=== PATIENT | female | born 1950 | race Caucasian/White ===

== ENCOUNTER 2017-10-31 14:18 | Emergency (ER) | payer MEDICARE, OTHER, SELFPAY ==
--- NOTE | 2017-10-31 14:29 | ED.LOWEXIN ---
HPI - Extremity Injury (Lower) <FREDIS Garcia - Last Filed: 10/31/17 21:50> General Chief Complaint: Extremity Injury, Lower Stated Complaint: FELL, POSSIBLE BREAK TO RIGHT ANKLE Time Seen by Provider: 10/31/17 14:29 History of Present Illness HPI Narrative: 67-year-old female here for complaint of pain to her right ankle status post rolling it while she stepped awkwardly off a sidewalk earlier today. She states she walked a couple blocks after she rolled her ankle and then she went knee lunch and then when she got up after lunch that she noticed increased pain to the right lateral ankle. She denies any other injuries or concerns. Increased pain with weight-bearing and ambulation on the right ankle. Related Data Home Medications Medication Instructions Recorded Confirmed levothyroxine 0.088 mg PO QAM #0 07/04/17 omeprazole 40 mg PO QAM #0 07/04/17 Allergies Allergy/AdvReac Type Severity Reaction Status Date / Time codeine [CODEINE] Allergy Mild Hives Unverified 09/20/17 12:40 Review of Systems <FREDIS Garcia - Last Filed: 10/31/17 21:50> Constitutional Denies chills, Denies fever(s), Denies lethargy and Denies weakness Eyes Denies change in vision, Denies eye discharge, Denies irritation and Denies loss of vision Cardiovascular Denies chest pain, Denies irregular heart rhythm, Denies lightheadedness, Denies palpitations and Denies orthopnea Gastrointestinal Gastrointestinal: Denies abdominal pain, Denies change in bowel habits, Denies diarrhea, Denies nausea and Denies vomiting Musculoskeletal Comments: Right ankle pain Integumentary/Breasts Denies pruritus, Denies erythema, Denies rash and Denies wounds Neurologic Denies loss of vision and Denies weakness Endocrine Denies palpitations Exam <FREDIS Garcia - Last Filed: 10/31/17 21:50> Initial Vital Signs Initial Vital Signs: Vital Signs Temperature 97.9 F 10/31/17 15:21 Pulse Rate 88 10/31/17 15:21 Respiratory Rate 14 10/31/17 15:21 Blood Pressure 122/79 H 10/31/17 15:21 Pulse Oximetry 98 10/31/17 15:21 Const General: cooperative and well developed Nutritional Appearance: well nourished Orientation: alert, awake, oriented x3 and not confused [facility] Mouth: oral mucosae normal and moist mucous membranes Eyes General: appearance normal, both eyes and all related structures Eyelids: eyelids normal Conjunctivae: conjunctivae normal Sclera: sclerae normal Pupils: PERRL EOM: EOM intact bilaterally Resp Effort & Inspection: normal respiratory effort, able to speak in complete sentences, no respiratory distress and no use of accessory muscles Auscultation: clear to auscultation bilaterally, no rales, no rhonchi and no wheezes Cardio Rate: regular rate Rhythm: regular rhythm Heart Sounds: no click, no gallops, no murmurs and no rubs Pulses: normal peripheral pulses Skin General: no rashes or lesions noted, No jaundice and No petechiae Extrem Other: Swelling to the right lateral malleolus with slight ecchymosis. No open lesions. No deformities. Distal sensation is intact. Distal pulses are intact. Distal range of motion is intact. <DO Charles Hopson Last Filed: 11/07/17 18:11> Initial Vital Signs Initial Vital Signs: Vital Signs Temperature 97.9 F 10/31/17 15:21 Pulse Rate 88 10/31/17 15:21 Respiratory Rate 14 10/31/17 15:21 Blood Pressure 122/79 H 10/31/17 15:21 Pulse Oximetry 98 10/31/17 15:21 Procedures <FREDIS Garcia - Last Filed: 10/31/17 21:50> Orthopedic Splinting/Casting Injury #1: Side: right Lower Extremity Injury Location: ankle Lower Extremity Immobilizer: posterior splint and stirrup splint Other Orthopedic Equipment: crutches Additional Comments: Distal CMS intact after splint application Course <FREDIS Garcia Last Filed: 10/31/17 21:50> Orders Ordered: ED Orders 10/31/17 15:33 XR ankle RT min 3V Stat Vital Signs - 8 hr 10/31/17 15:21 Temperature 97.9 F Pulse Rate 88 Respiratory Rate 14 Blood Pressure 122/79 H Pulse Oximetry 98 <DO Charles Hopson Last Filed: 11/07/17 18:11> Orders Ordered: ED Orders 10/31/17 15:33 XR ankle RT min 3V Stat Vital Signs - 8 hr 10/31/17 15:21 Temperature 97.9 F Pulse Rate 88 Respiratory Rate 14 Blood Pressure 122/79 H Pulse Oximetry 98 [facility] - Extremity Injury (Lower) <FREDIS Garcia - Last Filed: 10/31/17 21:50> Imaging Data Right ankle: Radiologist's impression: PROCEDURE: XR ANKLE RT MIN 3V INDICATIONS: 67 year-old female with right ankle injury. TECHNIQUE: 3 views of the ankle were acquired. COMPARISON: None. FINDINGS: Bones: There is mildly displaced transverse avulsion fracture involving the distal fibular tip. Ankle mortise is normally aligned. No suspicious bony lesions. Soft tissues: No tibiotalar joint effusion. Achilles tendon appears normal. IMPRESSION: Distal fibular tip transverse avulsion fracture, consistent with stage I supination adduction mechanism of injury. Dictated by: Saeed Rouse M.D. on 10/31/2017 at 16:09 Approved by: Saeed Rouse M.D. on 10/31/2017 at 16:11 [facility] Narrative Medical decision making narrative: X-ray of the right ankle was obtained and shows a distal fibular avulsion fracture. She is placed in a posterior and stirrup splint for comfort and support along with crutches for nonweightbearing. She is referred Orthopedics for further evaluation and treatment. [id number] Tylenol and Motrin as needed for any discomfort. Offered [place] for breakthrough pain the patient refused and would rather just use Tylenol or Motrin. Ice and elevation help with swelling. Return emergency room for any worsening symptoms. Discharge Plan Departure Patient Disposition: Home, Self-Care Clinical Impression: Ankle fracture Discharge Date/Time: 10/31/17 17:48 Interventions: ED Discharge Assessment Last Done: 10/31/17 17:47 Instructions: DI for Ankle Fracture Activity Restrictions/Additional Instructions: X-ray of the right ankle shows a you have of ankle fracture. You have been placed in a splint for comfort and support along with crutches for non weight-bearing use as directed. Ice and elevation to right ankle over the next few days to help with swelling. Use [id number] Tylenol or Motrin as needed for any discomfort. For any worsening symptoms return to the emergency room. Call Orthopedics tomorrow at the number provided to schedule follow-up appointment in the next few days. Prescriptions: No Action omeprazole 40 MG capsule,delayed release(DR/EC) 40 mg PO QAM Qty: 0 RF: 0 levothyroxine 88 MCG tablet 0.088 mg PO QAM Qty: 0 RF: 0 Referrals: [facility] [Provider Group] Briseida Lozada MD [Primary Care Provider] - <Flaco Parada DO - Last Filed: 11/07/17 18:11> Cosign ED Attending Omkar Attestation: I was available for consultation during this patient's emergency department encounter
[2017-10-31 15:21] VITALS: BP 122/79; PULSE 88; RESP 14; TEMP 36.6; O2SAT 98
--- NOTE | 2017-10-31 15:33 | DI.RAD.S_ITS ---
PROCEDURE: XR ANKLE RT MIN 3V INDICATIONS: 67 year-old female with right ankle injury. TECHNIQUE: 3 views of the ankle were acquired. COMPARISON: None. FINDINGS: Bones: There is mildly displaced transverse avulsion fracture involving the distal fibular tip. Ankle mortise is normally aligned. No suspicious bony lesions. Soft tissues: No tibiotalar joint effusion. Achilles tendon appears normal. IMPRESSION: Distal fibular tip transverse avulsion fracture, consistent with stage I supination adduction mechanism of injury. Dictated by: Saeed Rouse M.D. on 10/31/2017 at 16:09 Approved by: Saeed Rouse M.D. on 10/31/2017 at 16:11
--- NOTE | 2017-10-31 16:43 | ED_ITS ---
HPI - Extremity Injury (Lower) <FREDIS Garcia - Last Filed: 10/31/17 21:50> General Chief Complaint: Extremity Injury, Lower Stated Complaint: FELL, POSSIBLE BREAK TO RIGHT ANKLE Time Seen by Provider: 10/31/17 14:29 History of Present Illness HPI Narrative: 67-year-old female here for complaint of pain to her right ankle status post rolling it while she stepped awkwardly off a sidewalk earlier today. She states she walked a couple blocks after she rolled her ankle and then she went knee lunch and then when she got up after lunch that she noticed increased pain to the right lateral ankle. She denies any other injuries or concerns. Increased pain with weight-bearing and ambulation on the right ankle. Related Data Home Medications Medication Instructions Recorded Confirmed levothyroxine 0.088 mg PO QAM #0 07/04/17 omeprazole 40 mg PO QAM #0 07/04/17 Allergies Allergy/AdvReac Type Severity Reaction Status Date / Time codeine [CODEINE] Allergy Mild Hives Unverified 09/20/17 12:40 Review of Systems <FREDIS Garcia - Last Filed: 10/31/17 21:50> Constitutional Denies chills, Denies fever(s), Denies lethargy and Denies weakness Eyes Denies change in vision, Denies eye discharge, Denies irritation and Denies loss of vision Cardiovascular Denies chest pain, Denies irregular heart rhythm, Denies lightheadedness, Denies palpitations and Denies orthopnea Gastrointestinal Gastrointestinal: Denies abdominal pain, Denies change in bowel habits, Denies diarrhea, Denies nausea and Denies vomiting Musculoskeletal Comments: Right ankle pain Integumentary/Breasts Denies pruritus, Denies erythema, Denies rash and Denies wounds Neurologic Denies loss of vision and Denies weakness Endocrine Denies palpitations Exam <FREDIS Garcia - Last Filed: 10/31/17 21:50> Initial Vital Signs Initial Vital Signs: Vital Signs Temperature 97.9 F 10/31/17 15:21 Pulse Rate 88 10/31/17 15:21 Respiratory Rate 14 10/31/17 15:21 Blood Pressure 122/79 H 10/31/17 15:21 Pulse Oximetry 98 10/31/17 15:21 Const General: cooperative and well developed Nutritional Appearance: well nourished Orientation: alert, awake, oriented x3 and not confused [facility] Mouth: oral mucosae normal and moist mucous membranes Eyes General: appearance normal, both eyes and all related structures Eyelids: eyelids normal Conjunctivae: conjunctivae normal Sclera: sclerae normal Pupils: PERRL EOM: EOM intact bilaterally Resp Effort & Inspection: normal respiratory effort, able to speak in complete sentences, no respiratory distress and no use of accessory muscles Auscultation: clear to auscultation bilaterally, no rales, no rhonchi and no wheezes Cardio Rate: regular rate Rhythm: regular rhythm Heart Sounds: no click, no gallops, no murmurs and no rubs Pulses: normal peripheral pulses Skin General: no rashes or lesions noted, No jaundice and No petechiae Extrem Other: Swelling to the right lateral malleolus with slight ecchymosis. No open lesions. No deformities. Distal sensation is intact. Distal pulses are intact. Distal range of motion is intact. <DO Charles Hopson Last Filed: 11/07/17 18:11> Initial Vital Signs Initial Vital Signs: Vital Signs Temperature 97.9 F 10/31/17 15:21 Pulse Rate 88 10/31/17 15:21 Respiratory Rate 14 10/31/17 15:21 Blood Pressure 122/79 H 10/31/17 15:21 Pulse Oximetry 98 10/31/17 15:21 Procedures <FREDIS Garcia - Last Filed: 10/31/17 21:50> Orthopedic Splinting/Casting Injury #1: Side: right Lower Extremity Injury Location: ankle Lower Extremity Immobilizer: posterior splint and stirrup splint Other Orthopedic Equipment: crutches Additional Comments: Distal CMS intact after splint application Course <FREDIS Garcia Last Filed: 10/31/17 21:50> Orders Ordered: ED Orders 10/31/17 15:33 XR ankle RT min 3V Stat Vital Signs - 8 hr 10/31/17 15:21 Temperature 97.9 F Pulse Rate 88 Respiratory Rate 14 Blood Pressure 122/79 H Pulse Oximetry 98 <DO Charles Hopson Last Filed: 11/07/17 18:11> Orders Ordered: ED Orders 10/31/17 15:33 XR ankle RT min 3V Stat Vital Signs - 8 hr 10/31/17 15:21 Temperature 97.9 F Pulse Rate 88 Respiratory Rate 14 Blood Pressure 122/79 H Pulse Oximetry 98 [facility] - Extremity Injury (Lower) <FREDIS Garcia - Last Filed: 10/31/17 21:50> Imaging Data Right ankle: Radiologist's impression: PROCEDURE: XR ANKLE RT MIN 3V INDICATIONS: 67 year-old female with right ankle injury. TECHNIQUE: 3 views of the ankle were acquired. COMPARISON: None. FINDINGS: Bones: There is mildly displaced transverse avulsion fracture involving the distal fibular tip. Ankle mortise is normally aligned. No suspicious bony lesions. Soft tissues: No tibiotalar joint effusion. Achilles tendon appears normal. IMPRESSION: Distal fibular tip transverse avulsion fracture, consistent with stage I supination adduction mechanism of injury. Dictated by: Saeed Rouse M.D. on 10/31/2017 at 16:09 Approved by: Saeed Rouse M.D. on 10/31/2017 at 16:11 [facility] Narrative Medical decision making narrative: X-ray of the right ankle was obtained and shows a distal fibular avulsion fracture. She is placed in a posterior and stirrup splint for comfort and support along with crutches for nonweightbearing. She is referred Orthopedics for further evaluation and treatment. [id number] Tylenol and Motrin as needed for any discomfort. Offered [place] for breakthrough pain the patient refused and would rather just use Tylenol or Motrin. Ice and elevation help with swelling. Return emergency room for any worsening symptoms. Discharge Plan Departure Patient Disposition: Home, Self-Care Clinical Impression: Ankle fracture Discharge Date/Time: 10/31/17 17:48 Interventions: ED Discharge Assessment Last Done: 10/31/17 17:47 Instructions: DI for Ankle Fracture Activity Restrictions/Additional Instructions: X-ray of the right ankle shows a you have of ankle fracture. You have been placed in a splint for comfort and support along with crutches for non weight- bearing use as directed. Ice and elevation to right ankle over the next few days to help with swelling. Use [id number] Tylenol or Motrin as needed for any discomfort. For any worsening symptoms return to the emergency room. Call Orthopedics tomorrow at the number provided to schedule follow-up appointment in the next few days. Prescriptions: No Action omeprazole 40 MG capsule,delayed release(DR/EC) 40 mg PO QAM Qty: 0 RF: 0 levothyroxine 88 MCG tablet 0.088 mg PO QAM Qty: 0 RF: 0 Referrals: [facility] [Provider Group] Briseida Lozada MD [Primary Care Provider] - <Flaco Parada DO - Last Filed: 11/07/17 18:11> Cosign ED Attending Omkar Attestation: I was available for consultation during this patient's emergency department encounter
== END 2017-10-31 17:48 | disposition home or self-care (01) ==
PROVIDERS: Emergency Provider Nurse Practitioner Family; PCP Family Medicine
DX: S82.891A Other fracture of right lower leg, initial encounter for closed fracture (principal); W18.43XA Slipping, tripping and stumbling without falling due to stepping from one level to another, initial encounter
CPT/HCPCS: 29515; 73610; 99283

== ENCOUNTER → 2017-12-07 08:01 | Outpatient (CLI) | payer MEDICARE, OTHER, SELFPAY ==
[2017-12-07 09:24] LABS: Thyroid Stimulating Hormone 1.04 uIU/mL (0.47-4.68)
== END ==
PROVIDERS: PCP Family Medicine; Visit Provider Family Medicine
DX: E03.8 Other specified hypothyroidism (principal); E06.3 Autoimmune thyroiditis
CPT/HCPCS: 36415; 84443

== ENCOUNTER → 2018-08-29 10:55 | Outpatient (CLI) | payer MEDICARE, OTHER, SELFPAY ==
--- NOTE | 2018-08-29 | DI.MG.S_ITS ---
BILATERAL DIGITAL SCREENING MAMMOGRAM 3D/2D WITH CAD: 08/29/2018 CLINICAL: Routine screening. Comparison is made to exams dated: 07/31/2017 mammogram, 06/22/2016 mammogram - [facility], 05/05/2015 mammogram, and 03/27/2014 mammogram - [facility]. The tissue of both breasts is heterogeneously dense. This may lower the sensitivity of mammography. Current study was also evaluated with a Computer Aided Detection (CAD) system. No significant masses, calcifications, or other findings are seen in either breast. There has been no significant interval change. IMPRESSION: NEGATIVE There is no mammographic evidence of malignancy. A 1 year screening mammogram is recommended. This exam was interpreted at Station ID: [id number]. NOTE: For mammograms, a report in lay terms will be sent to the patient. Approximately 15% of breast malignancies will not be visualized mammographically. In the management of a palpable breast mass, a negative mammogram must not discourage biopsy of a clinically suspicious lesion. Electronically Signed By: Aly morley/madison:08/30/2018 08:04:56 letter sent: Normal Exam ACR BI-RADS Category 1: Negative 3341F
== END ==
PROVIDERS: PCP Family Medicine; Visit Provider Family Medicine
DX: Z12.31 Encounter for screening mammogram for malignant neoplasm of breast (principal)
CPT/HCPCS: 77063; 77067

== ENCOUNTER → 2018-08-30 07:33 | Outpatient (CLI) | payer MEDICARE, OTHER, SELFPAY ==
[2018-08-30 08:58] LABS: Cholesterol 234 mg/dL (140-199); Glucose 88 mg/dL (80-110); HDL Cholesterol 81 mg/dL (40-60); LDL Cholesterol Calculated 142 mg/dL (<100); Triglycerides 55 mg/dL (35-150)
[2018-08-30 09:27] LABS: Thyroid Stimulating Hormone 3.43 uIU/mL (0.47-4.68)
== END ==
PROVIDERS: PCP Family Medicine; Visit Provider Family Medicine
DX: E03.8 Other specified hypothyroidism (principal); E06.3 Autoimmune thyroiditis; Z13.1 Encounter for screening for diabetes mellitus; Z13.220 Encounter for screening for lipoid disorders
CPT/HCPCS: 36415; 80061; 82947; 84443

== ENCOUNTER → 2019-05-21 09:42 | Outpatient (CLI) | payer MEDICARE, OTHER, SELFPAY ==
--- NOTE | 2019-05-21 09:43 | DI.US.S_ITS ---
PROCEDURE: US EXTREMITY NONVASC LOWER LT INDICATIONS: MASS MEDIAL TO TIBIA ON LEFT LEG TECHNIQUE: Real-time scanning was performed of the left lower leg, with image documentation. COMPARISON: None. FINDINGS: 2.0 x 0.8 x 1.4 cm isoechoic lobulated avascular soft tissue mass corresponding to the palpable abnormality. IMPRESSION: Possible soft tissue lipoma; however differential would include both benign and malignant etiology. If indicated, contrast-enhanced soft tissue MRI could be performed. Dictated by: Jimmy SIMS Interpreted: Linda Norris MD on 05/21/2019 at 12:55 Approved by: Linda Norris M.D. on 05/21/2019 at 15:47
== END ==
PROVIDERS: PCP Family Medicine; Visit Provider Family Medicine
DX: R22.40 Localized swelling, mass and lump, unspecified lower limb (principal)
CPT/HCPCS: 76882

== ENCOUNTER → 2019-07-09 09:43 | Outpatient (CLI) | payer MEDICARE, OTHER, SELFPAY ==
[2019-07-09 11:41] LABS: Thyroid Stimulating Hormone 1.98 uIU/mL (0.47-4.68)
== END ==
PROVIDERS: PCP Family Medicine; Visit Provider Family Medicine
DX: E03.8 Other specified hypothyroidism (principal)
CPT/HCPCS: 36415; 84443

== ENCOUNTER → 2020-01-21 11:53 | Outpatient (CLI) | payer MEDICARE, OTHER, SELFPAY ==
--- NOTE | 2020-01-21 11:56 | DI.MG.S_ITS ---
BILATERAL DIGITAL SCREENING MAMMOGRAM 3D/2D WITH CAD: 01/21/2020 CLINICAL: Routine screening. Comparison is made to exams dated: 08/29/2018 mammogram, 07/31/2017 mammogram, and 06/22/2016 mammogram - [facility]. The tissue of both breasts is heterogeneously dense. This may lower the sensitivity of mammography. Current study was also evaluated with a Computer Aided Detection (CAD) system. No significant masses, calcifications, or other findings are seen in either breast. There has been no significant interval change. IMPRESSION: NEGATIVE There is no mammographic evidence of malignancy. A 1 year screening mammogram is recommended. This exam was interpreted at Station ID: [id number]. NOTE: For mammograms, a report in lay terms will be sent to the patient. Approximately 15% of breast malignancies will not be visualized mammographically. In the management of a palpable breast mass, a negative mammogram must not discourage biopsy of a clinically suspicious lesion. Electronically Signed By: Joselito Tamez M.D., jr/madison:01/21/2020 15:20:54 letter sent: Normal Exam ACR BI-RADS Category 1: Negative 3341F
== END ==
PROVIDERS: PCP Family Medicine; Referring Provider Family Medicine; Visit Provider Family Medicine
DX: Z12.31 Encounter for screening mammogram for malignant neoplasm of breast (principal)
CPT/HCPCS: 77063; 77067

== ENCOUNTER → 2020-02-27 08:35 | Outpatient (CLI) | payer MEDICARE, OTHER, SELFPAY ==
[2020-02-27 09:17] LABS: Add Manual Diff / Slide Review NO; Basophils Absolute Auto 0 /uL (0-100); Basophils Percent Auto 0.7 % (0-2); Eosinophils Absolute Auto 0 /uL (0-450); Eosinophils Percent Auto 1.4 % (2-4); Hematocrit 38.8 % (36-46); Hemoglobin 12.7 g/dL (12.0-16.0); Lymphocytes Absolute Auto 1300 /uL (1100-4500); Lymphocytes Percent Auto 38.5 % (25-40); Mean Corpuscular HGB Conc 32.8 % (30-36); Mean Corpuscular Hemoglobin 29.1 PG (26-34); Mean Corpuscular Volume 88.5 fL (80-100); Monocytes Absolute Auto 300 /uL (0-900); Monocytes Percent Auto 8.5 % (3-14); Neutrophils Absolute Auto 1800 /uL (1500-7000); Neutrophils Percent Auto 50.9 % (50-75); Platelet Count 203 X10^3/uL (150-400); Red Blood Cell Count 4.38 X10^6/uL (4.0-5.2); White Blood Cell Count 3.5 X10^3/uL (4.5-11.0)
[2020-02-27 09:24] LABS: Hemoglobin A1C% w Est Avg Glu 5.6 % (4.0-6.0)
[2020-02-27 09:34] LABS: Alanine Aminotransferase 12 IU/L (<35); Albumin 4.1 g/dL (3.5-5.0); Albumin Globulin Ratio 1.7 (1.0-2.8); Alkaline Phosphatase 49 U/L (38-126); Aspartate Aminotransferase 17 IU/L (14-36); BUN Creatinine Ratio 16.7 (6-22); Bilirubin Total 0.8 mg/dL (0.2-1.3); Blood Urea Nitrogen 12 mg/dL (7-17); Calcium 9.2 mg/dL (8.4-10.2); Carbon Dioxide 29 mmol/L (22-32); Chloride 101 mmol/L (98-107); Estimated Glomerular Filt Rate > 60.0 mL/min (>60); Globulin 2.4 g/dL (1.7-4.1); Glucose 95 mg/dL (80-110); HEMOLYSIS < 15 (0-50); Potassium 4.1 mmol/L (3.4-5.1); Sodium 136 mmol/L (137-145); Total Protein 6.5 g/dL (6.3-8.2)
[2020-02-27 10:13] LABS: Vitamin D 25 Hydroxy (D3) 30.6 ng/mL (30.0-100.0)
[2020-02-27 10:15] LABS: Free T3, Triiodothyronine Free 2.56 pg/mL (2.77-5.27); Free T4, Direct Thyroxine 1.74 ng/dL (0.78-2.19)
[2020-02-27 10:22] LABS: Vitamin B12 351 pg/mL (239-931)
[2020-02-27 10:29] LABS: Thyroid Stimulating Hormone 0.933 uIU/mL (0.47-4.68)
== END ==
PROVIDERS: PCP Family Medicine; Referring Provider Family Medicine; Visit Provider Family Medicine
DX: R53.83 Other fatigue (principal); R63.8 Other symptoms and signs concerning food and fluid intake; E03.8 Other specified hypothyroidism; E06.3 Autoimmune thyroiditis
CPT/HCPCS: 36415; 80053; 82306; 82607; 83036; 84439; 84443; 84481; 85025

== ENCOUNTER → 2020-04-21 08:17 | Outpatient (CLI) | payer MEDICARE, OTHER, SELFPAY ==
[2020-04-21 10:45] LABS: Free T3, Triiodothyronine Free 2.88 pg/mL (2.77-5.27); Free T4, Direct Thyroxine 1.15 ng/dL (0.78-2.19)
== END ==
PROVIDERS: PCP Family Medicine; Referring Provider Family Medicine; Visit Provider Family Medicine
DX: E03.8 Other specified hypothyroidism (principal); E06.3 Autoimmune thyroiditis
CPT/HCPCS: 36415; 84439; 84443; 84481

== ENCOUNTER → 2020-07-07 16:05 | Outpatient (CLI) | payer MEDICARE, OTHER, SELFPAY ==
[2020-07-07] MEDS: COVID-19 VACC #1, MRNA(MOD) 100 MCG/0.5 ML VIAL IM (16:20)
== END ==
PROVIDERS: PCP Family Medicine; Visit Provider Internal Medicine
DX: Z23 Encounter for immunization (principal)
CPT/HCPCS: 0011A; 91301

== ENCOUNTER → 2020-08-05 08:31 | Outpatient (CLI) | payer MEDICARE, OTHER, SELFPAY ==
[2020-08-05] MEDS: COVID-19 VACC #2, MRNA(MOD) 100 MCG/0.5 ML VIAL IM (08:35)
== END ==
PROVIDERS: Visit Provider Internal Medicine
DX: Z23 Encounter for immunization (principal)
CPT/HCPCS: 0012A; 91301

== ENCOUNTER → 2021-01-29 08:12 | Outpatient (CLI) | payer MEDICARE, OTHER, SELFPAY ==
--- NOTE | 2021-01-29 | DI.MG.S_ITS ---
BILATERAL DIGITAL SCREENING MAMMOGRAM 3D/2D WITH CAD: 01/29/2021 CLINICAL: Routine screening. Comparison is made to exams dated: 01/21/2020 mammogram, 08/29/2018 mammogram, and 07/31/2017 mammogram - [facility]. The tissue of both breasts is heterogeneously dense. This may lower the sensitivity of mammography. Current study was also evaluated with a Computer Aided Detection (CAD) system. No significant masses, calcifications, or other findings are seen in either breast. There has been no significant interval change. IMPRESSION: NEGATIVE There is no mammographic evidence of malignancy. A 1 year screening mammogram is recommended. This exam was interpreted at Station ID: [id number]. NOTE: For mammograms, a report in lay terms will be sent to the patient. Approximately 15% of breast malignancies will not be visualized mammographically. In the management of a palpable breast mass, a negative mammogram must not discourage biopsy of a clinically suspicious lesion. Electronically Signed By: Joselito Tamez M.D., jr/madison:01/29/2021 09:26:50 letter sent: Normal Exam ACR BI-RADS Category 1: Negative 3341F
== END ==
PROVIDERS: PCP Family Medicine; Referring Provider Family Medicine; Visit Provider Family Medicine
DX: Z12.31 Encounter for screening mammogram for malignant neoplasm of breast (principal)
CPT/HCPCS: 77063; 77067

== ENCOUNTER → 2021-03-02 07:09 | Outpatient (CLI) | payer MEDICARE, OTHER, SELFPAY ==
[2021-03-02 08:03] LABS: Add Manual Diff / Slide Review NO; Basophils Absolute Auto 0 /uL (0-100); Basophils Percent Auto 0.7 % (0-2); Eosinophils Absolute Auto 200 /uL (0-450); Eosinophils Percent Auto 4.2 % (2-4); Hematocrit 39.1 % (36-46); Hemoglobin 12.8 g/dL (12.0-16.0); Lymphocytes Absolute Auto 1500 /uL (1100-4500); Lymphocytes Percent Auto 34.8 % (25-40); Mean Corpuscular HGB Conc 32.8 % (30-36); Mean Corpuscular Hemoglobin 28.9 PG (26-34); Monocytes Absolute Auto 500 /uL (0-900); Monocytes Percent Auto 10.8 % (3-14); Neutrophils Absolute Auto 2100 /uL (1500-7000); Neutrophils Percent Auto 49.5 % (50-75); Platelet Count 224 X10^3/uL (150-400); Red Blood Cell Count 4.44 X10^6/uL (4.0-5.2); White Blood Cell Count 4.2 X10^3/uL (4.5-11.0)
[2021-03-02 08:40] LABS: Alanine Aminotransferase 22 IU/L (<35); Albumin Globulin Ratio 1.5 (1.0-2.8); Alkaline Phosphatase 55 U/L (38-126); Aspartate Aminotransferase 20 IU/L (14-36); BUN Creatinine Ratio 14.3 (6-22); Bilirubin Total 0.8 mg/dL (0.2-1.3); Blood Urea Nitrogen 12 mg/dL (7-17); Calcium 9.1 mg/dL (8.4-10.2); Carbon Dioxide 31 mmol/L (22-32); Chloride 104 mmol/L (98-107); Cholesterol 223 mg/dL (140-199); Estimated Glomerular Filt Rate > 60.0 mL/min (>60); Globulin 2.7 g/dL (1.7-4.1); Glucose 105 mg/dL (80-110); HDL Cholesterol 58 mg/dL (40-60); HEMOLYSIS < 15 (0-50); LDL Cholesterol Calculated 145 mg/dL (<100); Sodium 137 mmol/L (137-145); Total Protein 6.7 g/dL (6.3-8.2); Triglycerides 98 mg/dL (35-150)
[2021-03-02 08:48] LABS: Free T4, Direct Thyroxine 1.15 ng/dL (0.78-2.19)
[2021-03-02 09:01] LABS: Thyroid Stimulating Hormone 2.99 uIU/mL (0.47-4.68)
== END ==
PROVIDERS: PCP Family Medicine; Referring Provider Family Medicine; Visit Provider Family Medicine
DX: E03.8 Other specified hypothyroidism (principal); E06.3 Autoimmune thyroiditis
CPT/HCPCS: 36415; 80053; 80061; 84439; 84443; 84481; 85025

== ENCOUNTER → 2021-03-22 09:06 | Outpatient (CLI) | payer MEDICARE, OTHER, SELFPAY ==
[2021-03-23 12:08] LABS: Fecal Immunochemical Test Negative (Negative)
== END ==
PROVIDERS: PCP Family Medicine; Referring Provider Family Medicine; Visit Provider Family Medicine
DX: Z12.11 Encounter for screening for malignant neoplasm of colon (principal)
CPT/HCPCS: 82274

== ENCOUNTER → 2021-04-16 13:30 | Outpatient (CLI) | payer MEDICARE, OTHER, SELFPAY ==
[2021-04-16] MEDS: COVID-19 VACC #3, MRNA(MOD) 50 MCG/0.25 ML VIAL IM (13:36)
== END ==
PROVIDERS: PCP Family Medicine; Visit Provider Internal Medicine
DX: Z23 Encounter for immunization (principal)
CPT/HCPCS: 0013A; 91301

== ENCOUNTER → 2021-10-13 08:05 | Outpatient (CLI) | payer MEDICARE, OTHER, SELFPAY ==
[2021-10-13 09:07] LABS: Add Manual Diff / Slide Review NO; Basophils Absolute Auto 0 /uL (0-100); Basophils Percent Auto 0.9 % (0-2); Eosinophils Absolute Auto 100 /uL (0-450); Eosinophils Percent Auto 1.6 % (2-4); Hematocrit 37.5 % (36-46); Hemoglobin 12.6 g/dL (12.0-16.0); Lymphocytes Absolute Auto 1500 /uL (1100-4500); Lymphocytes Percent Auto 39.4 % (25-40); Mean Corpuscular HGB Conc 33.5 % (30-36); Mean Corpuscular Hemoglobin 29.3 PG (26-34); Mean Corpuscular Volume 87.5 fL (80-100); Monocytes Absolute Auto 400 /uL (0-900); Monocytes Percent Auto 9.6 % (3-14); Neutrophils Absolute Auto 1800 /uL (1500-7000); Neutrophils Percent Auto 48.5 % (50-75); Platelet Count 199 X10^3/uL (150-400); Red Blood Cell Count 4.28 X10^6/uL (4.0-5.2); Red Cell Distribution Width 14.7 % (11.6-14.8); White Blood Cell Count 3.8 X10^3/uL (4.5-11.0)
[2021-10-13 09:18] LABS: Hemoglobin A1C% w Est Avg Glu 5.7 % (4.0-6.0)
[2021-10-13 09:46] LABS: Alanine Aminotransferase 46 IU/L (<35); Albumin Globulin Ratio 1.5 (1.0-2.8); Alkaline Phosphatase 60 U/L (38-126); Aspartate Aminotransferase 31 IU/L (14-36); BUN Creatinine Ratio 10.7 (6-22); Bilirubin Total 0.9 mg/dL (0.2-1.3); Blood Urea Nitrogen 9 mg/dL (7-17); Calcium 8.8 mg/dL (8.4-10.2); Carbon Dioxide 31 mmol/L (22-32); Chloride 103 mmol/L (98-107); Cholesterol 209 mg/dL (140-199); Estimated Glomerular Filt Rate > 60 mL/min (>60); Globulin 2.7 g/dL (1.7-4.1); Glucose 100 mg/dL (80-110); HDL Cholesterol 50 mg/dL (40-60); HEMOLYSIS < 15 (0-50); LDL Cholesterol Calculated 136 mg/dL (<100); Potassium 4.3 mmol/L (3.4-5.1); Sodium 139 mmol/L (137-145); Total Protein 6.7 g/dL (6.3-8.2); Triglycerides 117 mg/dL (35-150)
== END ==
PROVIDERS: PCP Family Medicine; Referring Provider Family Medicine; Visit Provider Family Medicine
DX: R07.89 Other chest pain (principal)
CPT/HCPCS: 36415; 80053; 80061; 83036; 85025

== ENCOUNTER → 2021-10-20 13:20 | Outpatient (CLI) | payer MEDICARE, OTHER, SELFPAY ==
[2021-10-20 15:55] LABS: COVID19 -Nasal RAPID Negative (Negative)
== END ==
PROVIDERS: PCP Family Medicine; Visit Provider Family Medicine Sleep Medicine
DX: Z20.822 Contact with and (suspected) exposure to COVID-19 (principal)
CPT/HCPCS: 87635

== ENCOUNTER → 2021-10-20 13:56 | Outpatient (CLI) | payer MEDICARE, OTHER, SELFPAY ==
--- NOTE | 2021-10-20 13:58 | DI.NM.S_ITS ---
PROCEDURE: NM ROGER PERF SPECT REST & STR Rest and exercise myocardial perfusion SPECT with gated imaging and ejection fraction RADIOPHARMACEUTICAL: 25.2 mCi Tc-99m sestamibi IV at rest and 25.0 mCi Tc-99m sestamibi IV at peak exercise. A two day-protocol was performed. INDICATIONS: atypical chest pain TECHNIQUE: Radiopharmaceutical was injected at peak stress test, and also at rest. SPECT images were obtained. SPECT myocardial perfusion images were displayed in short axis, horizontal long axis, and vertical long axis views. Gated images were reviewed using [employer] software. COMPARISON: None. CARDIAC STRESS: A standard Misha treadmill exercise tolerance test was performed by the patient under the supervision of an attending staff. The patient exercised for 4 minutes and 1 seconds; functional aerobic impairment (JAIME) is 25%. Hemodynamic data: There is normal blood pressure and heart rate response to exercise stress. Patient achieved 111% of maximum predicted heart rate at peak exercise. Symptoms: Patient denied chest pain during exercise. EKG: No diagnostic EKG changes of ischemia; rare PVCs. FINDINGS: Raw data: There is good myocardial labeling by radiotracer. No significant motion artifacts. Ydcu-vy-lmosm ratio is 0.37 (normal is less than 0.38 for sestamibi tracer, and less than 0.50 for thallium tracer). Left ventricle function: Gated images demonstrate normal left ventricle wall thickening. No segmental wall motion abnormality. No transient ischemic dilation; TID is 0.98 (normal less than 1.3). The left ventricle resting end-diastolic volume is 88 mL. Left ventricle stress ejection fraction is 74%; normal values are above 45%. Myocardial perfusion: There is normal distribution of activity in the left and right ventricular myocardium. No fixed or reversible perfusion defects. IMPRESSION: Low risk, normal treadmill nuclear stress test 1) No perfusion evidence of ischemia or infarction. 2) No ECG changes with exercise. 3) No angina during the study. 4) Normal left ventricular size, wall motion, and systolic function (EF post stress 74%). 5) Mildly reduced exercise capacity (FA 7.0 METs, JAIME +25%). Target heart rate achieved. Appropriate BP response to exercise. 6) No prior nuclear stress test available for comparison. Dictated by: Zenia Sebastian MD on 10/21/2021 at 15:36 Approved by: Zenia Sebastian MD on 10/21/2021 at 15:38
--- NOTE | 2021-10-21 09:20 | P.PCN_ITS ---
Cardiac Stress Test Report Referral & Results Date Patient Seen: 10/21/21 Time Patient Seen: 09:00 Requesting provider: Briseida Lozada Indication: Chest discomfort Rest ECG: Normal sinus rhythm Procedure Note: Today, following both written and verbal informed consent, the patient was exercised according to a standard Misha protocol. The patient went for a total of 4 minutes achieving a maximum heart rate of 167 maximum systolic blood pressure of 162. This is approximately 7.0 METs. Exercise was terminated at this point because of fatigue. Patient was also given Cardiolite through a previously started Hep-Lock IV by the staff nuclear medicine technologist approximately 1 minute prior to the cessation of exercise. Rapid escalation of heart rate, but otherwise normal hemodynamic response to exercise. Occasional PVCs that did not increase in association with exertion. Diminished exercise capacity (FA I +25% on active scale), but orthopedic complaints may have limited stamina. Prominent T-waves after exertion, but no other EKG changes. No signs or symptoms of angina. Impression: Exercise portion is low risk. Perfusion imaging pending. Please note: Actual ECG tracings can be found in the PACS system.
== END ==
PROVIDERS: PCP Family Medicine; Referring Provider Family Medicine; Visit Provider Family Medicine
DX: R07.89 Other chest pain (principal); Z20.822 Contact with and (suspected) exposure to COVID-19
CPT/HCPCS: 78452; 87635; 93016; 93017; 93018; C9803; A9502

== ENCOUNTER → 2022-02-22 08:26 | Outpatient (CLI) | payer MEDICARE, OTHER, SELFPAY ==
--- NOTE | 2022-02-22 08:28 | DI.MG.S_ITS ---
BILATERAL DIGITAL SCREENING MAMMOGRAM 3D/2D WITH CAD: 02/22/2022 CLINICAL: Routine screening. Family history of breast cancer. Comparison is made to exams dated: 01/29/2021 mammogram, 01/21/2020 mammogram, and 08/29/2018 mammogram - [facility]. Both breasts are heterogeneously dense, which may obscure small masses (category c / 51-75% glandular tissue). Current study was also evaluated with a Computer Aided Detection (CAD) system. No significant masses, calcifications, or other findings are seen in either breast. There has been no significant interval change. IMPRESSION: NEGATIVE There is no mammographic evidence of malignancy. A 1 year screening mammogram is recommended. Based on the Tyrer Cuzick model (a risk assessment model) the patient's lifetime risk is 8.9% and her 10 year risk is 5.3%. According to the ACR, ACS, and NCCN guidelines, an annual breast MRI exam along with mammogram is recommended if the patient's lifetime risk is 20% or greater. This exam was interpreted at Station ID: [id number]. NOTE: For mammograms, a report in lay terms will be sent to the patient. Approximately 15% of breast malignancies will not be visualized mammographically. In the management of a palpable breast mass, a negative mammogram must not discourage biopsy of a clinically suspicious lesion. Electronically Signed By: Danilo alba/madison:02/22/2022 10:17:54 letter sent: Normal Exam ACR BI-RADS Category 1: Negative 3341F
== END ==
PROVIDERS: PCP Family Medicine; Referring Provider Family Medicine; Visit Provider Family Medicine
DX: Z12.31 Encounter for screening mammogram for malignant neoplasm of breast (principal); Z80.3 Family history of malignant neoplasm of breast
CPT/HCPCS: 77063; 77067

== ENCOUNTER 2022-03-01 09:29 | Emergency (ER) | payer MEDICARE, OTHER, SELFPAY ==
[2022-03-01] VITALS (10 sets, daily range): BP systolic 113–145; BP diastolic 71–93; PULSE 71–88; RESP 14–32; TEMP 36.4; O2SAT 95–99
--- NOTE | 2022-03-01 09:46 | DI.RAD.S_ITS ---
PROCEDURE: XR CHEST 1V INDICATIONS: chest pain TECHNIQUE: One view of the chest was acquired. COMPARISON: None. FINDINGS: Surgical changes and devices: None. Lungs and pleura: Mild streaky opacity at the right lower lobe. No pleural effusions or pneumothorax. Mediastinum: Mediastinal contours appear normal. Heart size is normal. Bones and chest wall: No suspicious bony lesions. Overlying soft tissues appear unremarkable. IMPRESSION: Mild streaky opacity at the right lower lobe. Suspect atelectasis over pneumonia. Dictated by: Abad López M.D. on 03/01/2022 at 10:12 Approved by: Abad López M.D. on 03/01/2022 at 10:13
[2022-03-01 10:30] LABS: Add Manual Diff / Slide Review NO; Basophils Absolute Auto 0 /uL (0-100); Basophils Percent Auto 0.5 % (0-2); Eosinophils Absolute Auto 0 /uL (0-450); Eosinophils Percent Auto 0.4 % (2-4); Hematocrit 36.9 % (36-46); Hemoglobin 12.5 g/dL (12.0-16.0); Lymphocytes Absolute Auto 1300 /uL (1100-4500); Lymphocytes Percent Auto 26.4 % (25-40); Mean Corpuscular HGB Conc 33.8 % (30-36); Mean Corpuscular Hemoglobin 29.4 PG (26-34); Monocytes Absolute Auto 400 /uL (0-900); Monocytes Percent Auto 8.5 % (3-14); Neutrophils Absolute Auto 3100 /uL (1500-7000); Neutrophils Percent Auto 64.2 % (50-75); Platelet Count 198 X10^3/uL (150-400); Red Blood Cell Count 4.24 X10^6/uL (4.0-5.2); Red Cell Distribution Width 15.7 % (11.6-14.8); White Blood Cell Count 4.8 X10^3/uL (4.5-11.0)
[2022-03-01 10:46] LABS: Alanine Aminotransferase 510 IU/L (<35); Albumin 3.9 g/dL (3.5-5.0); Albumin Globulin Ratio 1.3 (1.0-2.8); Alkaline Phosphatase 74 U/L (38-126); Aspartate Aminotransferase 251 IU/L (14-36); BUN Creatinine Ratio 15.5 (6-22); Bilirubin Total 1.4 mg/dL (0.2-1.3); Blood Urea Nitrogen 13 mg/dL (7-17); Calcium 8.7 mg/dL (8.4-10.2); Carbon Dioxide 27 mmol/L (22-32); Chloride 101 mmol/L (98-107); Creatine Kinase 59 U/L (30-135); Estimated Glomerular Filt Rate > 60 mL/min (>60); Glucose 96 mg/dL (80-110); HEMOLYSIS < 15 (0-50); Magnesium 2.3 mg/dL (1.6-2.3); Potassium 3.7 mmol/L (3.4-5.1); Sodium 137 mmol/L (137-145); Total Protein 6.9 g/dL (6.3-8.2)
[2022-03-01 10:55] LABS: Troponin I < 0.012 ng/mL (0.01-0.034)
--- NOTE | 2022-03-01 11:04 | ED_ITS ---
HPI - Chest Pain General Chief Complaint: Chest Pain Stated Complaint: Sent from [facility], Upper abd pain, N/V Time Seen by Provider: 03/01/22 11:01 Source: patient Mode of arrival: Ambulatory Limitations: no limitations History of Present Illness HPI narrative: Patient is a 71-year-old female history of hypothyroid presenting today with abdominal pain. He said 2 nights ago she felt epigastric pain and burning. She had some dry heaving. She actually says she did not have any chest pain. It is all across her upper abdomen. She says the following day she slept she was extremely tired. Today she feels well she went to the walk-in clinic to get checked out and was sent here for further evaluation. Today she has no chest pain no abdominal pain no nausea no vomiting no fever or chills. Related Data Home Medications Medication Instructions Recorded Confirmed magnesium 200 mg tablet 200 mg PO DAILY 06/13/19 03/01/22 multivitamin 1 cap PO DAILY 06/13/19 03/01/22 Previous Rx's Medication Instructions Recorded duloxetine 60 mg capsule,delayed 60 mg PO DAILY #90 caps 09/29/21 release levothyroxine 75 mcg tablet See Rx Instructions .Route 12/03/21 .COMPLEX #90 tabs liothyronine 5 mcg tablet See Rx Instructions .Route 12/03/21 .COMPLEX #90 tabs ondansetron 4 mg disintegrating 4 mg PO Q8H PRN nausea and 03/01/22 tablet vomiting #10 tabs Allergies Allergy/AdvReac Type Severity Reaction Status Date / Time codeine [CODEINE] Allergy Mild Hives Unverified 03/01/22 09:00 Review of Systems Review of Systems Narrative: GENERAL: Denies chills, fatigue, malaise, fever, sweats, travel HEENT: Denies sinus pain, ear pain, sore throat, difficulty swallowing, neck pain RESPIRATORY: Denies dyspnea, cough, wheezing, hemoptysis, sputum. CARDIOVASCULAR: Denies chest pain, palpitations, orthopnea, edema GASTROINTESTINAL: See HPI : Denies dysuria, frequency, incontinence, hematuria, urinary retention, flank pain. MUSCULOSKELETAL: Denies weakness, joint pain, or bony pain SKIN: No rash, no erythema, no pruritus NEUROLOGIC: Denies weakness, dizziness, headache, numbness, change in speech, confusion PSYCHIATRIC: No concerning psychosocial issues. 12 point review of systems is negative except for those stated above and HPI Patient History Medical History (Updated 03/01/22 @ 13:05 by Dalia Jefferson DO) Chicken pox (~1960) Chronic back pain (1999) Fractures (2006) GERD (gastroesophageal reflux disease) (2014) Hypothyroidism (~2005) Mumps (~1960) Rubella (~1960) Surgical History Anesthesia History of varicose vein stripping (2004) Status post left foot surgery (2006) Family History Grandmother Hypertension Brother Diabetes mellitus Father Pancreatic cancer Grandfather Emphysema lung Grandmother Cancer Mother No problems noted. Grandfather Suicide Sister No problems noted. Social History marital status: number of children: 2 household members: spouse lives independently: Yes caregiver/support person: No housing: house Smoking Status: Former smoker second hand exposure: No alcohol intake: current substance use type: does not use Smoking Status: Former smoker Substance Use Type: does not use Exam Initial Vital Signs Initial Vital Signs: Vital Signs Temperature 97.6 F 03/01/22 09:35 Pulse Rate 86 03/01/22 09:35 Respiratory Rate 16 03/01/22 09:35 Blood Pressure 145/93 H 03/01/22 09:35 Pulse Oximetry 96 03/01/22 09:35 Oxygen Delivery Method 03/01/22 09:35 GENERAL: Alert pleasant well-appearing 71-year-old female HEENT: Head atraumatic,EOMI, pupils reactive, face symmetric, moist mucous membranes CARDIOVASCULAR: Regular rate and rhythm without murmurs, rubs or gallops. RESPIRATORY: Breath sounds equal bilaterally, no wheezes rales or rhonchi. ABDOMEN: Soft, in minimal right upper quadrant pain no epigastric pain no guarding no rebound EXTREMITIES: Normal range of motion, no clubbing or edema. Neurovascularly intact NEUROLOGICAL: Alert and oriented x4. SKIN: Warm, dry, no laceration, no petechiae, no rashes or lesions. Course Orders Ordered: ED Orders 03/01/22 11:12 CT abdomen pelvis w con Stat 03/01/22 11:13 US abdomen limited Stat 03/01/22 11:30 Urinalysis and Microscopic Stat Urine Culture Stat Discontinued Medications Sodium Chloride (Normal Saline 0.9%) 1,000 mls @ 1,000 mls/hr IV BOLUS ONE Stop: 03/01/22 12:11 Last Infusion: 03/01/22 13:15 Dose: 0 mls/hr Documented By: Admin: 03/01/22 11:44 Dose: 1,000 mls/hr Documented By: [facility] Vital Signs Vital signs: Vital Signs - 8 hr 03/01/22 12:00 03/01/22 12:00 03/01/22 12:30 Pulse Rate 75 Respiratory Rate 16 Blood Pressure 132/71 141/83 H Pulse Oximetry 99 03/01/22 12:30 03/01/22 13:00 03/01/22 13:00 Pulse Rate 76 80 Respiratory Rate 16 32 H Blood Pressure 135/78 Pulse Oximetry 99 99 MDM - Chest Pain Lab Data Result diagrams: 03/01/22 10:05 03/01/22 10:05 Labs: Lab Results 03/01/22 03/01/22 03/01/22 Range/Units 10:05 10:05 11:30 WBC 4.8 (4.5-11.0) X10^3/uL RBC 4.24 (4.0-5.2) X10^6/uL Hgb 12.5 (12.0-16.0) g/dL Hct 36.9 (36-46) % MCV 87.0 (80-100) fL MCH 29.4 (26-34) PG MCHC 33.8 (30-36) % RDW 15.7 H (11.6-14.8) % Plt Count 198 (150-400) X10^3/uL Neut % (Auto) 64.2 (50-75) % Lymph % (Auto) 26.4 (25-40) % Winkler % (Auto) 8.5 (3-14) % Eos % (Auto) 0.4 L (2-4) % Baso % (Auto) 0.5 (0-2) % Neut # (Auto) 3100 (9885-8227) /uL Lymph # (Auto) 1300 (3733-5444) /uL Winkler # (Auto) 400 (0-900) /uL Eos # (Auto) 0 (0-450) /uL Baso # (Auto) 0 (0-100) /uL Sodium 137 (137-145) mmol/L Potassium 3.7 (3.4-5.1) mmol/L Chloride 101 (98-107) mmol/L Carbon Dioxide 27 (22-32) mmol/L BUN 13 (7-17) mg/dL Creatinine 0.84 (0.52-1.04) mg/dL Estimated GFR > 60 (>60) mL/min BUN/Creatinine Ratio 15.5 (6-22) Glucose 96 (80-110) mg/dL Calcium 8.7 (8.4-10.2) mg/dL Magnesium 2.3 (1.6-2.3) mg/dL Total Bilirubin 1.4 H (0.2-1.3) mg/dL AST 251 H (14-36) IU/L ALT 510 H (<35) IU/L Alkaline Phosphatase 74 (38-126) U/L Total Creatine Kinase 59 (30-135) U/L CK-MB (CK-2) TNP CK-MB (CK-2) Rel Index TNP Troponin I < 0.012 (0.01-0.034) ng/mL Total Protein 6.9 (6.3-8.2) g/dL Albumin 3.9 (3.5-5.0) g/dL Globulin 3.0 (1.7-4.1) g/dL Albumin/Globulin Ratio 1.3 (1.0-2.8) Lipase 4723 H (23-300) U/L Urine Color Yellow Urine Appearance Clear Urine pH 6.5 (4.5-8.0) Ur Specific [place] <=1.005 (1.000-1.035) Urine Protein Negative (Negative) Urine Glucose (UA) Negative (Negative) g/dL Urine Ketones Trace H (NEGATIVE) Urine Occult Blood Negative (Negative) Urine Nitrate Negative (Negative) Urine Bilirubin Negative (NEGATIVE) Urine Urobilinogen 0.2 (0.2) E.U./dL Ur Leukocyte Esterase 1+ H (NEGATIVE) Urine RBC 0-1/hpf (0-5/HPF) Urine WBC 1-5/hpf (0-5/HPF) Ur Squamous Epith Cells None seen (0-5/HPF) Urine Bacteria Occasional (0-1) (None) Ur Culture Indicated? Specimen cultured Imaging Data CT scan - abdomen/pelvis: Radiologist's Impression: Marina Xie MR#: [id number] : 1950 Acct:[id number] Age/Sex: 71 / F Date of Service: 03/01/22 Loc: ED Accession Number: [id number] ?? Procedure: CT abdomen pelvis w con Ordering Provider: Dalia Jefferson D.O. PROCEDURE:? CT ABDOMEN PELVIS W CON ? INDICATIONS:? high lipase high blil ? TECHNIQUE:? After the administration of intravenous contrast, axial sections acquired from the lung bases to the pubic symphysis.? Coronal and sagittal reformats were performed.? For radiation dose reduction, the following was used:? automated exposure control, adjustment of mA and/or kV according to patient size.? ? COMPARISON:? None. ? FINDINGS:? Image quality:? Excellent.? ? Lung bases:? Suspected basal atelectasis/scarring. Heart:? No significant heart abnormalities.? There is a small hiatal hernia.? There is a nodule in the inferior breast on the left measuring 1 cm.? Patient recently obtained a screening mammogram. ? ABDOMEN: Liver:? Suspected hepatic steatosis there are subcentimeter lesions are too small to characterize. Gallbladder:? Suspected isoattenuating stones versus sludge.? No significant inflammatory changes. Biliary ducts:? Nondilated Pancreas:? No altered enhancement.? No significant inflammatory changes.? No ductal dilation.? There might be some peripancreatic fat stranding around the uncinate process Small hypoattenuating lesion at the pancreatic head (2/33) measuring 8 mm, no ductal dilation Spleen:? Unremarkable.? ? Adrenal Glands:? Unremarkable.? ? Kidneys and Ureters:? No hydronephrosis ? Stomach and Bowel:? Small hiatal hernia.? No bowel obstruction.? No convincing evidence of enteritis or colitis.? Moderate fecal loading and moderate-size rectal stool ball. Peritoneum:? No pathologic ascites. ? Ventral Wall:? Small fat containing umbilical hernia Abdominal Nodes:? No lymph nodes seen in large by size criteria.? Prominent upper abdominal nodes are present, overall with normal morphology for example aortocaval node on axial image 33 measuring 1 cm. There is non-specific fat stranding of the mesentery, particularly of the jejunum Vessels:? No abdominal aortic aneurysm ? PELVIS: Pelvic Organs:? There is a cystic lesion along the right adnexa measuring 7.4 by 7.5 by 8.6 cm.? Calcification within the left ovary.? Uterus is unremarkable on limited CT evaluation. Bladder:? Unremarkable.? ? Pelvic Nodes: No enlarged lymph nodes.? Miscellaneous: No hernias are seen. ? ? ? Bones:? Spondylosis without acute or suspicious osseous abnormality. ? ? IMPRESSION:? No significant pancreatic inflammatory changes.? There is questionable fat stranding around the uncinate process that could serve as a imaging correlate to clinically suspected pancreatitis.? No altered enhancement. Possible gallstones versus sludge.? No biliary ductal dilation.? This could be further evaluated with ultrasound. Suspected hepatic steatosis. ? Cystic lesion in the right adnexa measuring over 7 cm.? Small hypoattenuating lesion at the pancreatic head measuring 8 mm.? Both of these lesions can be further evaluated with MRI abdomen and MRI pelvis on a nonemergent basis.? ? Nonspecific fat stranding in the mesentery could represent mesenteric panniculitis.? ? Other incidental findings above.? ? Dictated by: Nhan Liu M.D. on 03/01/2022 at 11:37 ? ? Approved by: Nhan Liu M.D. on 03/01/2022 at 11:51 ? US - abdomen: Radiologist's Impression: Signed Patient: Marina Xie MR#: [id number] : 1950 Acct:[id number] Age/Sex: 71 / F Date of Service: 03/01/22 Loc: ED Accession Number: [id number] ?? Procedure: US abdomen limited Ordering Provider: Dalia Jefferson D.O. PROCEDURE: US ABDOMEN LIMITED ? INDICATIONS:? Abdominal pain ? TECHNIQUE:? Real-time focused scanning was performed of the abdomen, with image documentation.? ? COMPARISON:? None. ? FINDINGS:? Multiple mobile gallstones, largest measuring 1.8 x 2 centimeters.? Gallbladder is normally distended with no wall thickening or pericholecystic fluid.? The home comfort advisor reports a negative sonographic Chapa's sign.? Diffuse moderate hepatic steatosis.? No focal hepatic mass.? No intrahepatic or extrahepatic biliary ductal dilatation.? Pancreas is mostly obscured by bowel gas. ? IMPRESSION:? ? Cholelithiasis without findings of cholecystitis. ? Moderate hepatic steatosis. ? Dictated by: Joselito Tamez M.D. on 03/01/2022 at 12:25 ? ? MDM Narrative Medical decision making narrative: Concern for gallbladder pancreatitis? choledochal lithiasis. Bilirubin minimally elevated at 1.4 little liver enzymes slightly elevated and lipase is elevated at 4700 however patient is completely asymptomatic and eating and drinking Dr. Rick surgery updated patient's symptoms test results, at this time without symptoms can likely go home with repeat blood work she probably is passing a stone. Dr. Lozada, PCP updated on patient's symptoms and test results agrees with outpatient follow-up outpatient blood work has been ordered. I have discussed plan patient she agrees with going home. She has not required any medication here. Discharge Plan Departure Patient Disposition: Home Clinical Impression: Acute gallstone pancreatitis, Cholelithiasis Instructions: DI for Pancreatitis, DI for Gallstones Activity Restrictions/Additional Instructions: *You have been diagnosed with gallstones and gallstone pancreatitis *What to do: At this time you do have multiple gallstones you will need her gallbladder removed. It is likely that your pain gallstone. Continue to eat and drink I do recommend to eat drinking a Gatorade or Gatorade like product. He will need to have your blood work recheck tomorrow. Dr. Zurita has put in the order sore you. He will need close follow-up. *Continue to take medications as directed Zofran 4 mg every 8 hours if needed for nausea or vomiting--> SENT TO [facility] *Follow up with your primary care provider in 2-3 days or call [phone] *Return to ER if you should have increased seeing nausea vomiting abdominal pain or any new, worsening or concerning symptoms Prescriptions: New ondansetron 4 mg tablet,disintegrating 4 mg PO Q8H PRN (Reason: nausea and vomiting) Qty: 10 0RF No Action duloxetine 60 mg capsule,delayed release(DR/EC) 60 mg PO DAILY Qty: 90 3RF levothyroxine 75 mcg tablet See Rx Instructions .ROUTE .COMPLEX Qty: 90 3RF Dose Instruction: take 1 tablet by mouth once daily Rx Instructions: take 1 tablet by mouth once daily liothyronine 5 mcg tablet See Rx Instructions .ROUTE .COMPLEX Qty: 90 3RF Dose Instruction: take 1/2 tablet by mouth twice a day Rx Instructions: take 1/2 tablet by mouth twice a day magnesium 200 mg tablet 200 mg PO DAILY multivitamin Capsule 1 cap PO DAILY Referrals: Briseida Lozada MD [Primary Care Provider] - Visit Report Forms: Patient Portal/API
[2022-03-01 11:08] LABS: Lipase 4723 U/L (23-300)
--- NOTE | 2022-03-01 11:12 | DI.CT.S_ITS ---
PROCEDURE: CT ABDOMEN PELVIS W CON INDICATIONS: high lipase high blil TECHNIQUE: After the administration of intravenous contrast, axial sections acquired from the lung bases to the pubic symphysis. Coronal and sagittal reformats were performed. For radiation dose reduction, the following was used: automated exposure control, adjustment of mA and/or kV according to patient size. COMPARISON: None. FINDINGS: Image quality: Excellent. Lung bases: Suspected basal atelectasis/scarring. Heart: No significant heart abnormalities. There is a small hiatal hernia. There is a nodule in the inferior breast on the left measuring 1 cm. Patient recently obtained a screening mammogram. ABDOMEN: Liver: Suspected hepatic steatosis there are subcentimeter lesions are too small to characterize. Gallbladder: Suspected isoattenuating stones versus sludge. No significant inflammatory changes. Biliary ducts: Nondilated Pancreas: No altered enhancement. No significant inflammatory changes. No ductal dilation. There might be some peripancreatic fat stranding around the uncinate process Small hypoattenuating lesion at the pancreatic head (2/33) measuring 8 mm, no ductal dilation Spleen: Unremarkable. Adrenal Glands: Unremarkable. Kidneys and Ureters: No hydronephrosis Stomach and Bowel: Small hiatal hernia. No bowel obstruction. No convincing evidence of enteritis or colitis. Moderate fecal loading and moderate-size rectal stool ball. Peritoneum: No pathologic ascites. Ventral Wall: Small fat containing umbilical hernia Abdominal Nodes: No lymph nodes seen in large by size criteria. Prominent upper abdominal nodes are present, overall with normal morphology for example aortocaval node on axial image 33 measuring 1 cm. There is non-specific fat stranding of the mesentery, particularly of the jejunum Vessels: No abdominal aortic aneurysm PELVIS: Pelvic Organs: There is a cystic lesion along the right adnexa measuring 7.4 by 7.5 by 8.6 cm. Calcification within the left ovary. Uterus is unremarkable on limited CT evaluation. Bladder: Unremarkable. Pelvic Nodes: No enlarged lymph nodes. Miscellaneous: No hernias are seen. Bones: Spondylosis without acute or suspicious osseous abnormality. IMPRESSION: No significant pancreatic inflammatory changes. There is questionable fat stranding around the uncinate process that could serve as a imaging correlate to clinically suspected pancreatitis. No altered enhancement. Possible gallstones versus sludge. No biliary ductal dilation. This could be further evaluated with ultrasound. Suspected hepatic steatosis. Cystic lesion in the right adnexa measuring over 7 cm. Small hypoattenuating lesion at the pancreatic head measuring 8 mm. Both of these lesions can be further evaluated with MRI abdomen and MRI pelvis on a nonemergent basis. Nonspecific fat stranding in the mesentery could represent mesenteric panniculitis. Other incidental findings above. Dictated by: Nhan Liu M.D. on 03/01/2022 at 11:37 Approved by: Nhan Liu M.D. on 03/01/2022 at 11:51
--- NOTE | 2022-03-01 11:13 | DI.US.S_ITS ---
PROCEDURE: US ABDOMEN LIMITED INDICATIONS: Abdominal pain TECHNIQUE: Real-time focused scanning was performed of the abdomen, with image documentation. COMPARISON: None. FINDINGS: Multiple mobile gallstones, largest measuring 1.8 x 2 centimeters. Gallbladder is normally distended with no wall thickening or pericholecystic fluid. The feed preparation operator reports a negative sonographic Chapa's sign. Diffuse moderate hepatic steatosis. No focal hepatic mass. No intrahepatic or extrahepatic biliary ductal dilatation. Pancreas is mostly obscured by bowel gas. IMPRESSION: Cholelithiasis without findings of cholecystitis. Moderate hepatic steatosis. Dictated by: Joselito Tamez M.D. on 03/01/2022 at 12:25 Approved by: Joselito Tamez M.D. on 03/01/2022 at 12:26
[2022-03-01] MEDS: SODIUM CHLORIDE 0.9% 1,000 ML 1000 ML IV (11:44)
[2022-03-01 12:04] LABS: Appearance Urine UA CLEAR; Bilirubin Urine UA NEGATIVE (NEGATIVE); Color Urine UA YELLOW; Glucose Urine UA NEGATIVE (Negative); Ketones Urine UA TRACE (NEGATIVE); Leukocyte Esterase Urine UA 1+ (NEGATIVE); Nitrite Urine UA NEGATIVE (Negative); Occult Blood Urine UA NEGATIVE (Negative); Protein Urine UA NEGATIVE (Negative); Specific Gravity Urine UA <=1.005 (1.000-1.035); Urobilinogen Urine UA 0.2 E.U./dL (0.2)
[2022-03-01 12:07] LABS: pH Urine UA 6.5 (4.5-8.0)
[2022-03-01 12:32] LABS: Bacteria Urine Occasional (0-1); Culture Indicated Urine Specimen Cultured; RBC Urine 0-1/HPF (0-5/HPF); Squamous Epithelial Cell Urine None Seen (0-5/HPF); WBC Urine 1-5/HPF (0-5/HPF)
== END 2022-03-01 13:19 | disposition home or self-care (01) ==
PROVIDERS: Emergency Provider Emergency Medicine; PCP Family Medicine
DX: K85.10 Biliary acute pancreatitis without necrosis or infection (principal); K80.20 Calculus of gallbladder without cholecystitis without obstruction; R03.0 Elevated blood-pressure reading, without diagnosis of hypertension
CPT/HCPCS: 36415; 71045; 74177; 76705; 80053; 81001; 82550; 83690; 83735; 84484; 85025; 87086; 93005; 93010; 96360; 96361; 99284

== ENCOUNTER → 2022-03-02 09:34 | Outpatient (CLI) | payer MEDICARE, OTHER, SELFPAY ==
[2022-03-02 10:56] LABS: Add Manual Diff / Slide Review NO; Basophils Absolute Auto 0 /uL (0-100); Basophils Percent Auto 0.7 % (0-2); Eosinophils Absolute Auto 100 /uL (0-450); Eosinophils Percent Auto 1.9 % (2-4); Hematocrit 36.6 % (36-46); Hemoglobin 12.5 g/dL (12.0-16.0); Lymphocytes Absolute Auto 1300 /uL (1100-4500); Lymphocytes Percent Auto 28.6 % (25-40); Mean Corpuscular HGB Conc 34.3 % (30-36); Mean Corpuscular Hemoglobin 29.8 PG (26-34); Monocytes Absolute Auto 400 /uL (0-900); Monocytes Percent Auto 8.3 % (3-14); Neutrophils Absolute Auto 2700 /uL (1500-7000); Neutrophils Percent Auto 60.5 % (50-75); Platelet Count 211 X10^3/uL (150-400); Red Cell Distribution Width 15.2 % (11.6-14.8); White Blood Cell Count 4.5 X10^3/uL (4.5-11.0)
[2022-03-02 11:22] LABS: Alanine Aminotransferase 301 IU/L (<35); Albumin 3.8 g/dL (3.5-5.0); Albumin Globulin Ratio 1.2 (1.0-2.8); Alkaline Phosphatase 62 U/L (38-126); Aspartate Aminotransferase 80 IU/L (14-36); BUN Creatinine Ratio 10.6 (6-22); Bilirubin Total 0.9 mg/dL (0.2-1.3); Blood Urea Nitrogen 9 mg/dL (7-17); Calcium 8.9 mg/dL (8.4-10.2); Carbon Dioxide 28 mmol/L (22-32); Chloride 102 mmol/L (98-107); Estimated Glomerular Filt Rate > 60 mL/min (>60); Gamma Glutamyl Transpeptidase 215 U/L (12-43); Globulin 3.1 g/dL (1.7-4.1); Glucose 125 mg/dL (80-110); HEMOLYSIS < 15 (0-50); Lipase 1046 U/L (23-300); Potassium 3.6 mmol/L (3.4-5.1); Sodium 137 mmol/L (137-145); Total Protein 6.9 g/dL (6.3-8.2)
[2022-03-02 11:39] LABS: Free T3, Triiodothyronine Free 3.43 pg/mL (2.77-5.27)
[2022-03-02 11:53] LABS: TSH w/ Reflex to FT4 4.98 uIU/mL (0.47-4.68)
[2022-03-02 13:13] LABS: Free T4, Direct Thyroxine 1.13 ng/dL (0.78-2.19)
== END ==
PROVIDERS: PCP Family Medicine; Referring Provider Family Medicine; Visit Provider Family Medicine
DX: E06.3 Autoimmune thyroiditis (principal); E03.8 Other specified hypothyroidism
CPT/HCPCS: 36415; 80053; 82977; 83690; 84439; 84443; 84481; 85025

== ENCOUNTER → 2022-03-08 07:10 | Outpatient (CLI) | payer MEDICARE, OTHER, SELFPAY ==
[2022-03-08 08:25] LABS: Alanine Aminotransferase 63 IU/L (<35); Albumin Globulin Ratio 1.3 (1.0-2.8); Alkaline Phosphatase 67 U/L (38-126); Aspartate Aminotransferase 23 IU/L (14-36); Bilirubin Total 0.6 mg/dL (0.2-1.3); Blood Urea Nitrogen 15 mg/dL (7-17); Calcium 8.6 mg/dL (8.4-10.2); Carbon Dioxide 27 mmol/L (22-32); Chloride 103 mmol/L (98-107); Estimated Glomerular Filt Rate > 60 mL/min (>60); Gamma Glutamyl Transpeptidase 119 U/L (12-43); Glucose 107 mg/dL (80-110); HEMOLYSIS < 15 (0-50); Lipase 521 U/L (23-300); Potassium 4.3 mmol/L (3.4-5.1); Sodium 138 mmol/L (137-145)
== END ==
PROVIDERS: PCP Family Medicine; Referring Provider Family Medicine; Visit Provider Family Medicine
DX: K80.20 Calculus of gallbladder without cholecystitis without obstruction (principal); K85.10 Biliary acute pancreatitis without necrosis or infection
CPT/HCPCS: 36415; 80053; 82977; 83690

== ENCOUNTER → 2022-03-25 16:13 | Outpatient (CLI) | payer MEDICARE, OTHER, SELFPAY ==
--- NOTE | 2022-03-25 16:14 | DI.MRI.S_ITS ---
PROCEDURE: MR ABDOMEN WO/W CON INDICATIONS: 8mm on pancreatic head TECHNIQUE: Coronal HASTE, axial 2D FLASH in- and [id number]; axial breath-hold T2 FSE with fat saturation from the hepatic dome to the iliac crests. Oblique coronal thin-slice and radial thick slab HASTE through the biliary system. Dynamic axial VIBE during administration of contrast. Post-contrast coronal VIBE or 2D FLASH with fat saturation from the hepatic dome to the iliac crests. Optional diffusion weighted imaging and ADC may be performed. COMPARISON: [facility], US, US ABDOMEN LIMITED, 03/01/2022, 12:05. [facility], CT, CT ABDOMEN PELVIS W CON, 03/01/2022, 11:21. FINDINGS: Image quality: Excellent. Pancreas and biliary system: No pancreatic ductal dilatation. No mass or cystic lesion. Homogeneous T1 signal and enhancement. No edema signal appreciated. No suspicious enhancement. No restricted diffusion. No biliary ductal dilatation. No biliary filling defect. Solid organs: Liver is normal in size. Hepatic steatosis. Gallbladder is not distended. Filled with multiple gallstones. Spleen is normal in size and enhancement. No adrenal nodules. Kidneys are normal in size and enhancement, without hydronephrosis. Small left peripelvic cysts suspected. Nodes and vessels: No retroperitoneal or mesenteric adenopathy by size criteria. Aorta and inferior vena cava are normal in size. Bowel and peritoneum: Unenhanced bowel loops are normal in caliber throughout. No free fluid. Lung bases: No basal pleural effusions. Heart size is normal. Small hiatal hernia. Bones and soft tissues: No ventral hernias. Bone marrow is normal in overall signal. IMPRESSION: 1. No pancreatic mass or cystic lesion. The CT finding is felt to be due to partial volume averaging and/or fronds of the pancreas. 2. No pancreatic or biliary ductal dilatation. 3. Gallbladder is filled with gallstones. 4. Hepatic steatosis. Dictated by: Abad López M.D. on 03/28/2022 at 8:14 Approved by: Abad López M.D. on 03/28/2022 at 8:44
== END ==
PROVIDERS: PCP Family Medicine; Referring Provider Physician Assistant; Visit Provider Physician Assistant
DX: K86.9 Disease of pancreas, unspecified (principal); R19.8 Other specified symptoms and signs involving the digestive system and abdomen; R93.5 Abnormal findings on diagnostic imaging of other abdominal regions, including retroperitoneum; K80.20 Calculus of gallbladder without cholecystitis without obstruction; K76.0 Fatty (change of) liver, not elsewhere classified
CPT/HCPCS: 74183; A9579

== ENCOUNTER → 2022-03-28 10:48 | Outpatient (CLI) | payer MEDICARE, OTHER, SELFPAY ==
--- NOTE | 2022-03-28 10:49 | DI.MRI.S_ITS ---
PROCEDURE: MR PELVIS WO/W CON INDICATIONS: complex cystic structure Right adenexa TECHNIQUE: Coronal HASTE, sagittal breath-hold T2 FSE; axial T1 FSE with and without fat saturation through the pelvis. Optional long- and short-axis uterine nonbreath-hold T2 FSE through the uterus. Sagittal or axial dynamic VIBE during administration of contrast. Post-contrast axial or coronal VIBE/2-D FLASH with fat saturation from the iliac crests to the symphysis. Optional diffusion weighted imaging and ADC may be performed. COMPARISON: [facility], CT, CT ABDOMEN PELVIS W CON, 03/01/2022, 11:21. FINDINGS: Image quality: Excellent. Uterus: Uterus is normal in size for postmenopausal female. Endometrium is normal thickness. The junctional zone is not well seen. No myometrial masses. Adnexa: There is a finally septated, thin-walled, nearly unilocular cystic mass in the posterior right adnexa measuring 7.3 x 9.0 x 7.2 cm. It demonstrates homogeneous fluid signal without mural nodule. There is no restricted diffusion or suspicious enhancement. The fine septation demonstrates similar enhancement to that of the cyst wall. Along the anterior caudal margin, there is slight tissue thickening suggesting presence of normal ovarian tissue. The CT scan demonstrates ovarian vein draining the cystic mass. The left ovary appears normal. Urinary system: Bladder wall is normal in thickness. Distal ureters are non distended. Urethra appears normal in morphology. Nodes and vessels: No pelvic or inguinal adenopathy by size criteria. Iliac vessels are normal in size. Bowel and peritoneum: No pathologic free pelvic fluid. Inferior colon and small bowel loops are normal in caliber. Soft tissues: No inguinal hernias. No findings of pelvic floor incompetence in the absence of provocation. Bones: Marrow demonstrates normal overall signal. IMPRESSION: 1. Minimally complex, fairly benign-appearing right ovarian cystic mass, most likely benign neoplasm such as serous or, less likely mucinous cystadenoma. Given size borderline for increased risk of ovarian torsion, gynecologic consult could be considered. Dictated by: Babita Green M.D. on 03/28/2022 at 17:41 Approved by: Babita Green M.D. on 03/28/2022 at 17:55
== END ==
PROVIDERS: PCP Family Medicine; Referring Provider Physician Assistant; Visit Provider Physician Assistant
DX: R93.5 Abnormal findings on diagnostic imaging of other abdominal regions, including retroperitoneum (principal); R19.8 Other specified symptoms and signs involving the digestive system and abdomen
CPT/HCPCS: 72197; A9579

== ENCOUNTER → 2022-03-30 14:57 | Outpatient (CLI) | payer MEDICARE, OTHER, SELFPAY ==
[2022-03-30 17:11] LABS: COVID19 -Nasal RAPID Negative (Negative)
== END ==
PROVIDERS: PCP Family Medicine; Referring Provider Internal Medicine; Visit Provider Internal Medicine
DX: Z20.822 Contact with and (suspected) exposure to COVID-19 (principal)
CPT/HCPCS: 87635; C9803

== ENCOUNTER → 2022-03-31 08:51 | Outpatient (CLI) | payer MEDICARE, OTHER, SELFPAY ==
--- NOTE | 2022-04-06 11:33 | PM.PFT.1 ---
Pulmonary Function Test Referral & Results Date Patient Seen: 03/31/22 Requesting provider: Sandra Wellington Results: The spirometry demonstrates an FVC of 3.52 L which is 99% of predicted. The FEV1 was measured at 2.73 L which is 102% of predicted. The FEV1/FVC ratio was 78 which is 102% of predicted. Following the administration of bronchodilator there was no appreciable change. Lung volumes show an SVC of 3.44 L which is 105% of predicted. The diffusing capacity was measured at 21.26 which is 71% of predicted. No hemoglobin value was provided, so no correction for potential anemia could be made, if appropriate. The maximum voluntary ventilation was normal Interpretation: This study demonstrates normal spirometry There is a minimal reduction diffusing capacity suggesting the possibility of disease at the capillary alveolar level as above, unless patient is anemic Clinical correlation suggested
== END ==
PROVIDERS: PCP Family Medicine; Referring Provider Physician Assistant; Visit Provider Physician Assistant
DX: R06.09 Other forms of dyspnea (principal); Z77.22 Contact with and (suspected) exposure to environmental tobacco smoke (acute) (chronic); Z87.891 Personal history of nicotine dependence; J98.8 Other specified respiratory disorders
CPT/HCPCS: 94060; 94726; 94729

== ENCOUNTER → 2022-04-05 07:23 | Outpatient (CLI) | payer MEDICARE, OTHER, SELFPAY ==
--- NOTE | 2022-04-05 09:20 | DI.MG.S_ITS ---
UNILATERAL LEFT DIGITAL DIAGNOSTIC MAMMOGRAM 3D/2D: 04/05/2022 CLINICAL: Left breast nodule seen on CT scan. Comparison is made to exams dated: 02/22/2022 mammogram, 01/29/2021 mammogram, and 01/21/2020 mammogram - [facility]. The left breast is heterogeneously dense, which may obscure small masses (category c / 51-75% glandular tissue). There is a stable 1.2 cm benign oval shaped mass in the left breast at 3 o'clock that correlates with finding on CT. No significant masses, calcifications, or other findings are seen in the breast. IMPRESSION: BENIGN There is no mammographic evidence of malignancy. Return to annual mammogram screening schedule is recommended. Future imaging is recommended as follows: 02/23/2023 screening mammogram. Based on the Tyrer Cuzick model (a risk assessment model) the patient's lifetime risk is 8.9% and her 10 year risk is 5.3%. According to the ACR, ACS, and NCCN guidelines, an annual breast MRI exam along with mammogram is recommended if the patient's lifetime risk is 20% or greater. This exam was interpreted at Station ID: [id number]. NOTE: For mammograms, a report in lay terms will be sent to the patient. Approximately 15% of breast malignancies will not be visualized mammographically. In the management of a palpable breast mass, a negative mammogram must not discourage biopsy of a clinically suspicious lesion. Electronically Signed By: Nhan Liu M.D. lc/:04/05/2022 10:05:41 letter sent: Normal Exam ACR BI-RADS Category 2: Benign Finding(s) [id number]
== END ==
PROVIDERS: PCP Family Medicine; Referring Provider Physician Assistant; Visit Provider Physician Assistant
DX: C80.1 Malignant (primary) neoplasm, unspecified (principal); R93.89 Abnormal findings on diagnostic imaging of other specified body structures
CPT/HCPCS: 77065; G0279

== ENCOUNTER → 2022-04-21 09:19 | Outpatient (CLI) | payer MEDICARE, OTHER, SELFPAY ==
[2022-04-21 11:15] LABS: Alanine Aminotransferase 17 IU/L (<35); Albumin Globulin Ratio 1.5 (1.0-2.8); Alkaline Phosphatase 61 U/L (38-126); Aspartate Aminotransferase 15 IU/L (14-36); BUN Creatinine Ratio 15.2 (6-22); Bilirubin Total 0.5 mg/dL (0.2-1.3); Blood Urea Nitrogen 14 mg/dL (7-17); Calcium 8.9 mg/dL (8.4-10.2); Carbon Dioxide 27 mmol/L (22-32); Chloride 102 mmol/L (98-107); Estimated Glomerular Filt Rate > 60 mL/min (>60); Gamma Glutamyl Transpeptidase 21 U/L (12-43); Globulin 2.6 g/dL (1.7-4.1); Glucose 96 mg/dL (80-110); HEMOLYSIS < 15 (0-50); Lipase 233 U/L (23-300); Potassium 4.2 mmol/L (3.4-5.1); Sodium 139 mmol/L (137-145); Total Protein 6.6 g/dL (6.3-8.2)
[2022-04-21 11:32] LABS: TSH w/ Reflex to FT4 0.82 uIU/mL (0.47-4.68)
== END ==
PROVIDERS: PCP Family Medicine; Referring Provider Family Medicine; Visit Provider Family Medicine
DX: K80.20 Calculus of gallbladder without cholecystitis without obstruction (principal); E06.3 Autoimmune thyroiditis; E03.8 Other specified hypothyroidism; K85.10 Biliary acute pancreatitis without necrosis or infection
CPT/HCPCS: 36415; 80053; 82977; 83690; 84443

== ENCOUNTER → 2022-05-02 13:13 | Outpatient (CLI) | payer MEDICARE, OTHER, SELFPAY ==
[2022-05-03 14:13] LABS: Cancer Antigen 125 11.3 U/mL (0-35)
== END ==
PROVIDERS: PCP Family Medicine; Referring Provider Obstetrics & Gynecology; Visit Provider Obstetrics & Gynecology
DX: N83.201 Unspecified ovarian cyst, right side (principal)
CPT/HCPCS: 36415; 86304

== ENCOUNTER → 2022-06-08 09:45 | Outpatient (CLI) | payer MEDICARE, OTHER, SELFPAY ==
--- NOTE | 2022-06-08 09:48 | DI.US.S_ITS ---
PROCEDURE: US PELVIC COMPLETE INDICATIONS: right adnexal cystic mass TECHNIQUE: Real-time scanning was performed of the pelvic organs, with image documentation. Additional endovaginal scanning was necessary due to incomplete visualization of the adnexal and endometrial structures by transabdominal scanning. COMPARISON: [facility], MR, MR PELVIS WO/W CON, 03/28/2022, 10:50. FINDINGS: Uterus: Uterus is anteverted and normal in size at 5.3 x 2.7 x 3.8 cm. The myometrium is homogeneous. The endometrium measures 2 mm combined thickness. Ovaries: Is a large right adnexal cyst measuring 9.8 x 6.8 by 7.8 cm, previously 7.3 x 9.0 x 7.2 cm on MRI. Low level internal echoes noted. Small amount of ovarian tissues noted anteriorly with appropriate vascularity. Left ovary is not visualized. Other: No pathologic free abdominal or pelvic fluid. IMPRESSION: 1. Large right adnexal cystic lesion with low-level internal echoes and no evidence of current torsion Approved by: Kevin Roberts M.D. on 06/08/2022 at 16:10
== END ==
PROVIDERS: PCP Family Medicine; Referring Provider Obstetrics & Gynecology; Visit Provider Obstetrics & Gynecology
DX: N83.201 Unspecified ovarian cyst, right side (principal); N94.89 Other specified conditions associated with female genital organs and menstrual cycle
CPT/HCPCS: 76856; 93976

== ENCOUNTER → 2022-12-29 08:00 | Outpatient (CLI) | payer MEDICARE, OTHER, SELFPAY ==
[2022-12-29 10:13] LABS: TSH w/ Reflex to FT4 1.63 uIU/mL (0.47-4.68)
[2022-12-29 11:19] LABS: Cholesterol 226 mg/dL (140-199); Glucose 95 mg/dL (80-110); HDL Cholesterol 59 mg/dL (40-60); LDL Cholesterol Calculated 147 mg/dL (<100); Triglycerides 99 mg/dL (35-150)
== END ==
PROVIDERS: PCP Family Medicine; Referring Provider Family Medicine; Visit Provider Family Medicine
DX: E78.5 Hyperlipidemia, unspecified (principal); E03.8 Other specified hypothyroidism; E06.3 Autoimmune thyroiditis; R73.9 Hyperglycemia, unspecified
CPT/HCPCS: 36415; 80061; 82947; 84443

== ENCOUNTER 2022-12-30 08:32 | Emergency (ER) | payer MEDICARE, OTHER, SELFPAY ==
[2022-12-30 08:47] VITALS: BP 137/73; PULSE 65; O2SAT 96
[2022-12-30 08:59] VITALS: BP 137/73; PULSE 68; RESP 16; TEMP 36.6; O2SAT 96; BMI 34.9
--- NOTE | 2022-12-30 09:02 | DI.RAD.S_ITS ---
PROCEDURE: XR FOREARM LT 2V INDICATIONS: fall, L wrist to elbow pain TECHNIQUE: 2 views of the forearm were acquired. COMPARISON: [facility], CR, XR ELBOW LT MIN 3V, 12/30/2022, 9:09. FINDINGS: Bones: Comminuted fracture of the proximal ulna involving the proximal shaft and olecranon, extending to the articular surface. It is mildly displaced and is angulated. Associated mildly comminuted radial head neck fracture. No dislocation. No distal fracture of the ulna and radius. Soft tissues: No suspicious soft tissue calcifications or masses. Elbow joint effusion. IMPRESSION: 1. Comminuted fracture of the proximal ulna involving the proximal shaft and olecranon. It is angulated and mildly displaced. 2. Mildly comminuted fracture of the proximal radial head and neck. Dictated by: Luis Carlos Zapata M.D. on 12/30/2022 at 9:53 Approved by: Luis Carlos Zapata M.D. on 12/30/2022 at 9:55
--- NOTE | 2022-12-30 09:02 | DI.RAD.S_ITS ---
PROCEDURE: XR ELBOW LT MIN 3V INDICATIONS: fall, L wrist to elbow pain TECHNIQUE: 3 views of the elbow were acquired. COMPARISON: [facility], CR, XR FOREARM LT 2V, 12/30/2022, 9:09. FINDINGS: Bones: Comminuted, angulated, and mildly displaced fracture of the olecranon and proximal shaft of the ulna extending to the articular surface. Additionally, there is a mildly comminuted fracture of the radial head and neck. No suspicious bony lesions. Soft tissues: Elbow joint effusion better seen on the forearm films. No suspicious soft tissue calcifications. IMPRESSION: 1. Comminuted, angulated, mildly displaced fracture of the olecranon and proximal shaft of the ulna extending to the articular surface. 2. Mildly comminuted fracture of the radial head and neck. Dictated by: Luis Carlos Zapata M.D. on 12/30/2022 at 9:55 Approved by: Luis Carlos Zapata M.D. on 12/30/2022 at 9:56
--- NOTE | 2022-12-30 09:02 | DI.RAD.S_ITS ---
PROCEDURE: XR WRIST LT MIN 3V INDICATIONS: fall, L wrist to elbow pain TECHNIQUE: 3 views of the wrist were acquired. COMPARISON: None. FINDINGS: Bones: No fractures or dislocations. No suspicious bony lesions. Soft tissues: No suspicious soft tissue calcifications. IMPRESSION: No evidence acute bony abnormality. If clinical suspicion and/or symptoms persist, further assessment with repeat plain films, or advanced imaging (e.g., CT, MRI, or bone scan) may be helpful for further assessment. Dictated by: Luis Carlos Zapata M.D. on 12/30/2022 at 9:52 Approved by: Luis Carlos Zapata M.D. on 12/30/2022 at 9:52
--- NOTE | 2022-12-30 09:38 | ED.UPPEXIN ---
HPI - Extremity Injury (Upper) General Chief Complaint: Extremity Injury, Upper Stated Complaint: fell on face and LT arm & wrist/rt knee Time Seen by Provider: 12/30/22 08:48 Source: patient and family Mode of arrival: Ambulatory History of Present Illness HPI narrative: Patient is a 72-year-old female with history of hypothyroid presenting today after mechanical fall and left elbow pain. She reports that she was in her yd when she tripped over a yd ornament. Landing little on her face mostly on her left elbow. Not on anticoagulation medication. She did hit her chin there is a very small abrasion but no loss of consciousness. No nausea or vomiting. No numbness or tingling in her left hand really complaining elbow pain. Related Data Home Medications Medication Instructions Recorded Confirmed multivitamin 1 cap PO DAILY 06/13/19 09/26/22 Magnesium 50 mg PO BEDTIME 08/30/22 09/26/22 Previous Rx's Medication Instructions Recorded duloxetine 20 mg capsule,delayed 40 mg PO BEDTIME #60 caps 08/30/22 release duloxetine 30 mg capsule,delayed 30 mg PO DAILY #30 caps 09/26/22 release levothyroxine 88 mcg tablet See Rx Instructions .Route 11/01/22 .COMPLEX #90 tabs liothyronine 5 mcg tablet See Rx Instructions .Route 11/28/22 .COMPLEX #90 tabs hydrocodone 5 mg-acetaminophen 325 1 tab PO Q6H PRN pain #15 tabs 12/30/22 mg tablet Allergies Allergy/AdvReac Type Severity Reaction Status Date / Time codeine [CODEINE] Allergy Mild Hives Verified 12/30/22 09:41 Review of Systems Review of Systems ROS Unobtainable: All systems reviewed & are unremarkable except as noted in HPI and below Patient History Medical History Barretts esophagus Chicken pox (~1959) Chronic back pain (1999) Fractures (2006) GERD (gastroesophageal reflux disease) (2014) Hypothyroidism (~2004) Mumps (~1960) Rubella (~1960) Surgical History Anesthesia History of varicose vein stripping (2004) Status post left foot surgery (2006) Family History Grandmother Hypertension Brother Diabetes mellitus Father Pancreatic cancer Grandfather Emphysema lung Grandmother Cancer Mother No problems noted. Grandfather Suicide Sister No problems noted. Social History marital status: number of children: 2 household members: spouse lives independently: Yes caregiver/support person: No housing: house Smoking Status: Former smoker second hand exposure: No alcohol intake: current substance use type: does not use Smoking Status: Former smoker Substance Use Type: does not use Exam Initial Vital Signs Initial Vital Signs: Vital Signs Pulse Rate 65 12/30/22 08:47 Blood Pressure 137/73 12/30/22 08:47 Pulse Oximetry 96 12/30/22 08:47 GENERAL: Alert pleasant 72-year-old female appears in and in no acute distress. HEENT: Head atraumatic,EOMI, pupils reactive, face symmetric, moist mucous membranes CARDIOVASCULAR: Regular rate and rhythm without murmurs, rubs or gallops. RESPIRATORY: Breath sounds equal bilaterally, no wheezes rales or rhonchi. ABDOMEN: Soft, nontender. Normoactive bowel sounds all 4 quadrants. No guarding or rebound. EXTREMITIES: Normal range of motion, no clubbing or edema. Neurovascularly intact Left upper extremity pain right at elbow no wrist deformity distal radial pulse intact no clavicle step-off no shoulder deformity sensation over deltoid intact NEUROLOGICAL: Alert and oriented x4. SKIN: Warm, dry, no laceration, no petechiae, no rashes or lesions. Procedures Orthopedic Splinting/Casting Injury #1: Side: left Upper Extremity Injury Location: elbow and forearm Upper Extremity Immobilizer: sling/shoulder immobilizer and posterior splint Post splinting neuro exam: intact and no change Post splinting vascular exam: intact Placed by: Provider Course Orders Ordered: Discontinued Medications Hydrocodone Bitart/Acetaminophen (Hydrocodone/Acet 5/325 Tablet) 1 tab PO NOW ONE Stop: 12/30/22 09:38 Last Admin: 12/30/22 09:44 Dose: 1 tab Documented By: MOHINDER Hydrocodone Bitart/Acetaminophen (Hydrocodone/Acet 5/325 Tablet) 1 tab PO NOW ONE Stop: 12/30/22 11:33 Last Admin: 12/30/22 11:35 Dose: 1 tab Documented By: KB Vital Signs Vital signs: Vital Signs - 8 hr 12/30/22 11:02 12/30/22 12:06 Temperature 97.9 F Pulse Rate 72 Pulse Rate [Left Radial] 72 Respiratory Rate 20 Blood Pressure 142/70 H Pulse Oximetry 98 Oxygen Delivery Method Room Air MDM - Extremity Injury (Upper) Imaging Data Extremity x-ray #1: Radiologist's Impression: PROCEDURE:? XR WRIST LT MIN 3V ? INDICATIONS: fall, L wrist to elbow pain ? TECHNIQUE:? 3 views of the wrist were acquired.? ? COMPARISON:? None. ? FINDINGS:? ? Bones:? No fractures or dislocations.? No suspicious bony lesions.? ? Soft tissues:? No suspicious soft tissue calcifications.? ? IMPRESSION:? No evidence acute bony abnormality. ? If clinical suspicion and/or symptoms persist, further assessment with repeat plain films, or advanced imaging (e.g., CT, MRI, or bone scan) may be helpful for further assessment. ? ? ? Dictated by: Luis Carlos Zapata M.D. on 12/30/2022 at 9:52 ? ? Extremity x-ray #2: Radiologist's Impression: PROCEDURE:? XR FOREARM LT 2V ? INDICATIONS:? fall, L wrist to elbow pain ? TECHNIQUE:? 2 views of the forearm were acquired.? ? COMPARISON:? [facility], CR, XR ELBOW LT MIN 3V, 12/30/2022, 9:09. ? FINDINGS:? ? Bones:? Comminuted fracture of the proximal ulna involving the proximal shaft and olecranon, extending to the articular surface.? It is mildly displaced and is angulated.? Associated mildly comminuted radial head neck fracture.? No dislocation.? No distal fracture of the ulna and radius. ? Soft tissues:? No suspicious soft tissue calcifications or masses.? Elbow joint effusion. ? ? ? IMPRESSION:? ? 1. Comminuted fracture of the proximal ulna involving the proximal shaft and olecranon.? It is angulated and mildly displaced. ? 2. Mildly comminuted fracture of the proximal radial head and neck.? Dictated by: Luis Carlos Zapata M.D. on 12/30/2022 at 9:53 ? ? Extremity x-ray #3: Radiologist's Impression: PROCEDURE:? XR ELBOW LT MIN 3V ? INDICATIONS:? fall, L wrist to elbow pain ? TECHNIQUE:? 3 views of the elbow were acquired.? ? COMPARISON:? [facility], CR, XR FOREARM LT 2V, 12/30/2022, 9:09. ? FINDINGS:? ? Bones:? Comminuted, angulated, and mildly displaced fracture of the olecranon and proximal shaft of the ulna extending to the articular surface.? Additionally, there is a mildly comminuted fracture of the radial head and neck.? No suspicious bony lesions.? ? Soft tissues:? Elbow joint effusion better seen on the forearm films.? No suspicious soft tissue calcifications.? ? ? IMPRESSION:? ? 1. Comminuted, angulated, mildly displaced fracture of the olecranon and proximal shaft of the ulna extending to the articular surface. ? 2. Mildly comminuted fracture of the radial head and neck.? ? ? Dictated by: Luis Carlos Zapata M.D. on 12/30/2022 at 9:55 ? ? MDM Narrative Medical decision making narrative: Patient 72-year-old female presents today with left elbow pain after fall. No head injury no signs or symptoms of intracranial hemorrhage. She is found to have proximal radius and ulna fractures along with an olecranon fracture. Neurovascularly intact. She is splinted and given Northwood. Dr. Mcneil on-call orthopedics has been consulted agrees with outpatient management and close follow-up. Discharge Plan Departure Patient Disposition: Home Clinical Impression: Fracture of proximal end of left radius and ulna Instructions: DI for Elbow Fracture Activity Restrictions/Additional Instructions: *You have been diagnosed with left proximal elbow and ulnar fracture *What to do: Keep arm in splint at all times. May ice 20-30 minutes as needed *Continue to take medications as directed Northwood 1 tablet every 6 hours if needed for severe pain--> [facility] *Follow up with your primary care provider in 2-3 days or call [phone] Call orthopedics today to schedule follow-up appointment for next week (Dr. Walker was suggested) *Return to ER if you should have increased pain numbness tingling weakness or any new, worsening or concerning symptoms CONTROLLED SUBSTANCE DISCHARGE (Narcotoic/benzodiazepine/Flexeril/Phenergan) 1. You have been prescribed narcotic medications, it does have acetaminophen/Tylenol/paracetamol in it, DO NOT TAKE MORE THAN 4,00mg in 24 hours of Tylenol. TRAMADOL DOES NOT CONTAIN TYLENOL 2. Please understand that we cannot provide further refills of narcotics, benzodiazepines or controlled substances through the ED and her pain management will need to be through your provider. 3. While on these medications you cannot drive or operate heavy machinery. 4. You cannot sign legal documents or perform any duties such as this. 5. As long as you're taking opiate pain medications he should also be taking a stool softener such as Colace, Dulcolax, MiraLAX or prune juice, to help avoid constipation. Prescriptions: New hydrocodone-acetaminophen 5-325 mg tablet 1 tab PO Q6H PRN (Reason: pain) Qty: 15 0RF No Action duloxetine 20 mg capsule,delayed release(DR/EC) 40 mg PO BEDTIME Qty: 60 3RF Magnesium 50 mg PO BEDTIME duloxetine 30 mg capsule,delayed release(DR/EC) 30 mg PO DAILY Qty: 30 2RF levothyroxine 88 mcg tablet See Rx Instructions .ROUTE .COMPLEX Qty: 90 1RF Dose Instruction: take 1 tablet by mouth once daily Rx Instructions: take 1 tablet by mouth once daily liothyronine 5 mcg tablet See Rx Instructions .ROUTE .COMPLEX Qty: 90 0RF Dose Instruction: take 1/2 tablet by mouth twice a day Rx Instructions: take 1/2 tablet by mouth twice a day multivitamin Capsule 1 cap PO DAILY Referrals: [facility] [Provider Group] Dakotah Walker MD [Physician] - Briseida Lozada MD [Primary Care Provider] - Stand Alone Forms: Patient Portal/API
[2022-12-30] MEDS: HYDROCODONE/ACET 5/325 TABLET 1 TAB PO ×2 (09:44→11:35)
[2022-12-30 11:02] VITALS: PULSE 72
[2022-12-30 12:06] VITALS: BP 142/70; PULSE 72; RESP 20; TEMP 36.6; O2SAT 98
== END 2022-12-30 12:00 | disposition home or self-care (01) ==
PROVIDERS: Emergency Provider Emergency Medicine; PCP Family Medicine
DX: S52.102A Unspecified fracture of upper end of left radius, initial encounter for closed fracture (principal); S52.002A Unspecified fracture of upper end of left ulna, initial encounter for closed fracture; S00.81XA Abrasion of other part of head, initial encounter; W01.0XXA Fall on same level from slipping, tripping and stumbling without subsequent striking against object, initial encounter
CPT/HCPCS: 73080; 73090; 73110; 99283; 99284

== ENCOUNTER → 2023-02-24 11:26 | Outpatient (CLI) | payer MEDICARE, OTHER, SELFPAY ==
--- NOTE | 2023-02-24 | DI.MG.S_ITS ---
BILATERAL DIGITAL SCREENING MAMMOGRAM 3D/2D WITH CAD: 02/24/2023 CLINICAL: Routine screening. Family history of breast cancer. Comparison is made to exams dated: 04/05/2022 mammogram, 02/22/2022 mammogram, 01/29/2021 mammogram, and 01/21/2020 mammogram - [facility]. Both breasts are heterogeneously dense, which may obscure small masses (category c / 51-75% glandular tissue). Current study was also evaluated with a Computer Aided Detection (CAD) system. There is a stable benign focal asymmetry in the left breast. No significant masses, calcifications, or other findings are seen in either breast. There has been no significant interval change. IMPRESSION: BENIGN There is no mammographic evidence of malignancy. A 1 year screening mammogram is recommended. Based on the Tyrer Cuzick model (a risk assessment model) the patient's lifetime risk is 8.4% and her 10 year risk is 5.3%. According to the ACR, ACS, and NCCN guidelines, an annual breast MRI exam along with mammogram is recommended if the patient's lifetime risk is 20% or greater. This exam was interpreted at Station ID: [id number]. NOTE: For mammograms, a report in lay terms will be sent to the patient. Approximately 15% of breast malignancies will not be visualized mammographically. In the management of a palpable breast mass, a negative mammogram must not discourage biopsy of a clinically suspicious lesion. Electronically Signed By: Jackson Mack M.D. aty/madison:02/24/2023 15:09:22 copy to: Briseida Lozada M.D., [employer], ph: [phone], fax: [phone] letter sent: Normal Exam ACR BI-RADS Category 2: Benign Finding(s) [id number]
--- NOTE | 2023-02-24 11:27 | DI.RAD.S_ITS ---
Bone Density Report Name: VELIA HOLLAND Age: 72 Sex: Female Ethnicity: White Date of : 1950 Indication: postmenopausal; screening for osteoporosis; Referring Provider: LIV GRIMALDO Study: Bone densitometry was performed. Exam Date: February 24, 2023 Accession number: [id number] Bone Density: Region BMD T-score Z-score Classification AP Spine(L1-L4) 0.919 -1.2 1.0 Osteopenia Femoral Neck (Left) 0.731 -1.1 0.8 Osteopenia Total Hip (Left) 0.908 -0.3 1.3 Normal Femoral Neck (Right) 0.679 -1.5 0.3 Osteopenia Total Hip (Right) 0.864 -0.6 0.9 Normal Total Hip Mean 0.886 -0.5 1.1 Normal World Health Organization criteria for BMD impression classify patients as: Normal (T-score at or above -1.0), Osteopenia (T-score between -1.0 and -2.5), or Osteoporosis (T-score at or below -2.5). 10-year Fracture Risk(1): Major Osteoporotic Fracture 9.4% Hip Fracture 1.3% Reported Risk Factors: [place] (), Neck BMD=0.679, BMI=34.2 (1) FRAX(R) Version 3.08. Fracture probability calculated for an untreated patient. Fracture probability may be lower if the patient has received treatment. Impression: The patient has low bone mass, based on the Right Femoral Neck T-score. The patient has an estimated ten-year risk of hip fracture of 1.3% and an estimated ten-year risk of major fracture of 9.4%, based on the WHO FRAX algorithm. Discussion: BONE DENSITY IS LOW AT ONE OR MORE SKELETAL SITES. This patient's lowest T-score is low at one or more skeletal sites. It meets the World Health Organization's (WHO) criteria for low bone mass (T-score between -1.0 and -2.5). The patient's 10-year risk of fracture as calculated by FRAX is less than the threshold where pharmacological therapy is recommended by the National Osteoporosis Foundation (NOF). However, all treatment decisions require clinical judgment and consideration of individual patient factors, including patient preferences, comorbidities, previous drug use, risk factors not captured in the FRAX model (e.g., frailty, falls, vitamin D deficiency, increased bone turnover, interval significant decline in bone density) and possible under or overestimation of fracture risk by FRAX. The patient should follow a healthful lifestyle (good nutrition with adequate calcium and vitamin D, and appropriate weight-bearing exercise). Follow-Up: Consider repeating this study in 2 to 3 years to reassess this patient's status, or sooner if there is some new clinical indication. Reported by: RODNEY NUNEZ M.D. on 02/24/2023 12:05:00 PM.
== END ==
PROVIDERS: PCP Family Medicine; Referring Provider Family Medicine; Visit Provider Family Medicine
DX: Z78.0 Asymptomatic menopausal state (principal); Z12.31 Encounter for screening mammogram for malignant neoplasm of breast; Z80.3 Family history of malignant neoplasm of breast; M85.851 Other specified disorders of bone density and structure, right thigh; Z90.710 Acquired absence of both cervix and uterus
CPT/HCPCS: 77063; 77067; 77080

== ENCOUNTER → 2023-03-07 15:46 | Outpatient (CLI) | payer MEDICARE, OTHER, SELFPAY ==
--- NOTE | 2023-03-07 15:50 | DI.RAD.S_ITS ---
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 COMPARISON: None. FINDINGS: Surgical changes and devices: None. Bones and chest wall: No fractures or dislocations. No suspicious bony lesions. Overlying soft tissues appear unremarkable. Lungs and pleura: No pleural effusions or pneumothorax. Lungs appear clear. Mediastinum: Mediastinal contours appear normal. Heart size is normal. IMPRESSION: No displaced rib fracture. No acute cardiopulmonary disease process. Dictated by: Lauren Alcantara MD, PhD on 03/07/2023 at 16:18 Approved by: Lauren Alcantara MD, PhD on 03/07/2023 at 16:19
== END ==
PROVIDERS: PCP Family Medicine; Referring Provider Student in an Organized Health Care Education/Training Program; Visit Provider Student in an Organized Health Care Education/Training Program
DX: R07.81 Pleurodynia (principal)
CPT/HCPCS: 71101

== ENCOUNTER → 2024-03-13 08:14 | Outpatient (CLI) | payer MEDICARE, SELFPAY ==
--- NOTE | 2024-03-13 08:15 | DI.MG.S_ITS ---
BILATERAL DIGITAL SCREENING MAMMOGRAM 3D/2D WITH CAD: 03/13/2024 CLINICAL: Routine screening. Family history of breast cancer. Comparison is made to exams dated: 02/24/2023 mammogram, 02/22/2022 mammogram, and 01/29/2021 mammogram - [facility]. There are scattered areas of fibroglandular density (category b / 25%-50% glandular tissue). Current study was also evaluated with a Computer Aided Detection (CAD) system. There is a stable benign focal asymmetry in the left breast. No significant masses, calcifications, or other findings are seen in either breast. There has been no significant interval change. IMPRESSION: BENIGN There is no mammographic evidence of malignancy. A 1 year screening mammogram is recommended. Based on the Tyrer Cuzick model (a risk assessment model) the patient's lifetime risk is 5.3% and her 10 year risk is 3.6%. According to the ACR, ACS, and NCCN guidelines, an annual breast MRI exam along with mammogram is recommended if the patient's lifetime risk is 20% or greater. This exam was interpreted at Station ID: [id number]. NOTE: For mammograms, a report in lay terms will be sent to the patient. Approximately 15% of breast malignancies will not be visualized mammographically. In the management of a palpable breast mass, a negative mammogram must not discourage biopsy of a clinically suspicious lesion. Electronically Signed By: Babita freeman/madison:03/13/2024 13:54:50 copy to: Briseida Lozada M.D., [facility], [facility] [place], ph: [phone], fax: [phone] letter sent: Normal Exam ACR BI-RADS Category 2: Benign
== END ==
PROVIDERS: PCP Family Medicine; Referring Provider Family Medicine; Visit Provider Family Medicine
DX: Z12.31 Encounter for screening mammogram for malignant neoplasm of breast (principal); Z80.3 Family history of malignant neoplasm of breast
CPT/HCPCS: 77063; 77067

== ENCOUNTER → 2024-04-23 06:59 | Outpatient (CLI) | payer MEDICARE, SELFPAY ==
[2024-04-23 08:10] LABS: Cholesterol 224 mg/dL (140-199); Glucose 99 mg/dL (80-110); HDL Cholesterol 52 mg/dL (40-60); LDL Cholesterol Calculated 148 mg/dL (<100); Triglycerides 121 mg/dL (35-150)
[2024-04-23 08:37] LABS: TSH w/ Reflex to FT4 2.95 uIU/mL (0.47-4.68)
== END ==
PROVIDERS: PCP Family Medicine; Referring Provider Family Medicine; Visit Provider Family Medicine
DX: E06.3 Autoimmune thyroiditis (principal); E03.8 Other specified hypothyroidism; Z13.220 Encounter for screening for lipoid disorders
CPT/HCPCS: 36415; 80061; 82947; 84443

== ENCOUNTER → 2025-03-25 13:15 | Outpatient (CLI) | payer MEDICARE, SELFPAY ==
--- NOTE | 2025-03-25 13:16 | DI.MG.S_ITS ---
MM screening mammo BI: 03/25/2025. BI-RADS: 1 CLINICAL: 74-year old female for bilateral screening mammogram. Tyrer-Cuzick lifetime risk of 5.5%. No personal or first-degree family history of breast cancer. PRIOR EXAMS: 03/13/2024, 02/24/2023, 04/05/2022, 02/22/2022, 01/29/2021, 01/21/2020, 08/29/2018, 07/31/2017, 06/22/2016. MAMMOGRAPHY TECHNIQUE: 2D and 3D (tomosynthesis) digital mammographic views obtained, with additional images as needed for full coverage. Current study was also evaluated with a Computer Aided Detection (CAD) system. DENSITY B. There are scattered areas of fibroglandular density. MAMMOGRAPHY FINDINGS Bilateral: No suspicious mass, asymmetry, microcalcification, or other abnormality seen. IMPRESSION: * No evidence of malignancy. RECOMMENDATIONS Bilateral * Annual screening mammography. OVERALL ASSESSMENT CATEGORY BI-RADS-1: Negative. The [employer] recommends annual screening mammography beginning at age 40 for women with average risk of breast cancer. ELECTRONICALLY SIGNED: Marychuy Louis M.D. on 03/26/2025 at 10:25:05 PM PT Interpreting Station ID: [id number]
== END ==
LOC: MAMMO 13:15
PROVIDERS: PCP Family Medicine; Referring Provider Family Medicine; Visit Provider Family Medicine
DX: Z12.31 Encounter for screening mammogram for malignant neoplasm of breast (principal)
CPT/HCPCS: 77063; 77067

== ENCOUNTER 2025-03-29 13:09 | Emergency (ER) | payer MEDICARE, SELFPAY ==
[2025-03-29] VITALS (10 sets, daily range): BP systolic 130–170; BP diastolic 71–83; PULSE 91–121; RESP 16–20; TEMP 36.4; O2SAT 96–99; BMI 36.5
--- NOTE | 2025-03-29 13:18 | DI.RAD.S_ITS ---
PROCEDURE: XR ANKLE LT MIN 3V INDICATIONS: injury TECHNIQUE: 3 views of the ankle were acquired. COMPARISON: [facility], CR, XR ANKLE RT MIN 3V, 10/31/2017, 15:20. FINDINGS: Bones: No fractures or dislocations. Ankle mortise is normally aligned. No suspicious bony lesions. Corticated linear lucency in the distal fibula consistent with partially united prior avulsion fracture. No evidence of acute fracture or ankle mortise disruption Soft tissues: No tibiotalar joint effusion. Achilles tendon appears normal. IMPRESSION: No acute fracture or ankle mortise disruption. 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 on 03/29/2025 at 13:03
--- NOTE | 2025-03-29 13:18 | DI.RAD.S_ITS ---
PROCEDURE: XR FOOT LT MIN 3V INDICATIONS: injury TECHNIQUE: 3 views of the foot were acquired. COMPARISON: None. FINDINGS: Bones: No fractures or dislocations. No suspicious bony lesions. Soft tissues: No tibiotalar joint effusion. Achilles tendon appears normal. 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 No fracture. Approved by: Kevin Roberts M.D. on 03/29/2025 at 13:05
--- NOTE | 2025-03-29 14:31 | ED.LOWEXIN ---
HPI - Extremity Injury (Lower) General Chief Complaint: Extremity Injury, Lower Stated Complaint: lt foot injury Time Seen by Provider: 03/29/25 14:30 Source: patient and other Mode of arrival: Wheelchair History of Present Illness HPI Narrative: Patient is a 74-year-old female hypothyroid chronic fatigue syndrome presenting to day with ground level fall and left ankle and leg pain. She reports that her legs were megha-cross she fell. She is unable to bear weight she is having excruciating pain she has some swelling in her lateral malleoli. No head injury or loss of consciousness. Related Data Home Medications ?Medication ?Instructions ?Recorded ?Confirmed multivitamin 1 cap PO DAILY 06/13/19 03/29/25 Magnesium 50 mg PO BEDTIME 08/30/22 03/29/25 omeprazole magnesium 20 mg 20 mg PO DAILY 05/03/23 03/29/25 tablet,delayed release (Prilosec OTC) Previous Rx's ?Medication ?Instructions ?Recorded meloxicam 7.5 mg tablet See Rx Instructions PO DAILY PRN 11/10/23 pain #30 tabs pravastatin 10 mg tablet 10 mg PO DAILY #90 tabs 04/29/24 liothyronine 5 mcg tablet 2.5 mcg (1/2 x 5 mcg) PO BID #90 10/30/24 tabs levothyroxine 88 mcg tablet 88 mcg PO DAILY #90 tabs 02/11/25 oxycodone-acetaminophen 5 mg-325 1 tab PO Q6H PRN pain #20 tabs 03/29/25 mg tablet (Percocet) Allergies Allergy/AdvReac Type Severity Reaction Status Date / Time codeine (CODEINE) Allergy Mild Hives Verified 03/29/25 13:21 Patient History Medical History Barretts esophagus Hypothyroidism (~2004) GERD (gastroesophageal reflux disease) (2014) Chicken pox (~1960) Mumps (~1960) Rubella (~1960) Chronic back pain (1999) Fractures (2006) Surgical History Anesthesia Status post left foot surgery (2006) History of varicose vein stripping (2004) Family History Grandmother Hypertension Brother Diabetes mellitus Father Pancreatic cancer Grandfather Emphysema lung Grandmother Cancer Mother No problems noted. Grandfather Suicide Sister No problems noted. Social History marital status: number of children: 2 household members: spouse lives independently: Yes caregiver/support person: No housing: house Smoking Status: Never smoker second hand exposure: No alcohol intake: current substance use type: does not use Smoking Status: Never smoker Exam Initial Vital Signs Initial Vital Signs: Vital Signs Pulse Rate 121 H 03/29/25 13:17 Blood Pressure 170/83 H 03/29/25 13:17 Pulse Oximetry 97 03/29/25 13:17 GENERAL: Well-appearing, well-nourished and in no acute distress. CARDIOVASCULAR: peripheral pulses in tact, cap refill <2 sec RESPIRATORY: No respiratory distress, speaks in full sentences without difficulty EXTREMITIES: Normal range of motion, no clubbing or edema. Neurovascularly intact Left lower extremity swelling over lateral malleoli distal pedal pulse intact foot is nontender she is having pain at her fibular head NEUROLOGICAL: Cranial nerves II through XII grossly intact. Normal gait and speech. SKIN: Warm, dry, no petechiae, no rashes or lesions. Procedures Orthopedic Splinting/Casting Injury #1: Side: left Lower Extremity Injury Location: lower leg (fibula proximal) Lower Extremity Immobilizer: posterior splint and stirrup splint Other Orthopedic Equipment: crutches and walker Post splinting neuro exam: intact Post splinting vascular exam: intact Placed by: Nursing Course Orders Ordered: ED Orders 03/29/25 13:18 XR ankle LT min 3V Stat XR foot LT min 3V Stat 03/29/25 14:39 XR knee LT 3V Stat XR tibia fibula LT 2V Stat Discontinued Medications Oxycodone/Acetaminophen (Oxycodone/Acetaminophen 5/325 Tablet) 1 tab PO NOW ONE Stop: 03/29/25 14:43 Last Admin: 03/29/25 14:49 Dose: 1 tab Documented By: TIGRE Vital Signs Vital signs: Vital Signs - 8 hr 03/29/25 13:17 03/29/25 13:17 03/29/25 13:21 Temperature 97.5 F L Pulse Rate 121 H 109 H Respiratory Rate 18 Blood Pressure 170/83 H 170/83 H Pulse Oximetry 97 97 Oxygen Delivery Method Room Air 03/29/25 13:30 03/29/25 14:00 03/29/25 14:30 Temperature Pulse Rate 104 H 94 H 92 H Respiratory Rate 16 20 Blood Pressure Pulse Oximetry 97 98 99 Oxygen Delivery Method 03/29/25 15:00 03/29/25 15:30 03/29/25 16:00 Temperature Pulse Rate 107 H 91 H 94 H Respiratory Rate 16 Blood Pressure Pulse Oximetry 96 96 96 Oxygen Delivery Method 03/29/25 16:30 03/29/25 17:57 Temperature Pulse Rate 97 H 99 H Respiratory Rate 16 16 Blood Pressure 130/71 Pulse Oximetry 96 96 Oxygen Delivery Method Room Air MDM - Extremity Injury (Lower) Imaging Data Extremity x-ray #1: Radiologist's Impression: PROCEDURE: XR ANKLE LT MIN 3V INDICATIONS: injury TECHNIQUE: 3 views of the ankle were acquired. COMPARISON: [facility], , XR ANKLE RT MIN 3V, 10/31/2017, 15:20. FINDINGS: Bones: No fractures or dislocations. Ankle mortise is normally aligned. No suspicious bony lesions. Corticated linear lucency in the distal fibula consistent with partially united prior avulsion fracture. No evidence of acute fracture or ankle mortise disruption Soft tissues: No tibiotalar joint effusion. Achilles tendon appears normal. IMPRESSION: No acute fracture or ankle mortise disruption. 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 on 03/29/2025 at 13:03 Extremity x-ray #2: Radiologist's Impression: PROCEDURE: XR FOOT LT MIN 3V INDICATIONS: injury TECHNIQUE: 3 views of the foot were acquired. COMPARISON: None. FINDINGS: Bones: No fractures or dislocations. No suspicious bony lesions. Soft tissues: No tibiotalar joint effusion. Achilles tendon appears normal. 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 No fracture. Approved by: Kevin Roberts M.D. on 03/29/2025 at 13:05 Extremity x-ray #3: Radiologist's Impression: PROCEDURE: XR TIBIA FIBULA LT 2V INDICATIONS: severe pain fall TECHNIQUE: 2 views of the tibia and fibula were acquired. COMPARISON: None. FINDINGS: Bones: Nondisplaced proximal fibular fracture Soft tissues: No suspicious soft tissue calcifications or masses. IMPRESSION: Nondisplaced proximal fibular fracture. Foreign body Approved by: Kevin Roberts M.D. on 03/29/2025 at 14:35 MDM Narrative Medical decision making narrative: Patient has sudden 4-year-old female presents today is a mechanical fall. Having pretty excruciating pain in her left upper leg x-ray does show proximal fibular shaft fracture with minimal displacement. Ankle and foot x-ray are negative for fracture but she does have significant swelling on the lateral malleoli. But only seems to be an ankle sprain. She is still having quite a bit of pain she is given a Percocet. She is given a walker. Her friend went to cigar packer and picker her pain medications but this time she will go home and follow up with Orthopedics. Discharge Plan Departure Patient Disposition: Home Clinical Impression: Closed fracture fibula, head, Ankle sprain Instructions: Fibula Shaft Fracture Activity Restrictions/Additional Instructions: *You have been diagnosed with fibula fracture and ankle sprain *What to do: Keep splint on you may weightbear as tolerated, elevate as often as you can ice through the splint *Continue to take medications as directed Percocet 1 tablet every 6 hours if needed for severe pain--do not take more than 1000 mg of Tylenol (acetaminophen) at a time *Follow up with your primary care provider in 2-3 days or call [phone] Call [facility] on Monday to schedule follow-up appointment *Return to ER if you should have increasing pain numbness tingling weakness or any new, worsening or concerning symptoms CONTROLLED SUBSTANCE DISCHARGE (Narcotoic/benzodiazepine/Flexeril/Phenergan) 1. You have been prescribed narcotic medications, it does have acetaminophen/Tylenol/paracetamol in it, DO NOT TAKE MORE THAN 4,00mg in 24 hours of Tylenol. TRAMADOL DOES NOT CONTAIN TYLENOL 2. Please understand that we cannot provide further refills of narcotics, benzodiazepines or controlled substances through the ED and her pain management will need to be through your provider. 3. While on these medications you cannot drive or operate heavy machinery. 4. You cannot sign legal documents or perform any duties such as this. 5. As long as you're taking opiate pain medications he should also be taking a stool softener such as Colace, Dulcolax, MiraLAX or prune juice, to help avoid constipation. Prescriptions: New oxycodone-acetaminophen [Percocet] 5-325 mg tablet 1 tab PO Q6H PRN (Reason: pain) Qty: 20 0RF No Action meloxicam 7.5 mg tablet See Rx Instructions PO DAILY PRN (Reason: pain) Qty: 30 2RF Rx Instructions: 1-2 tabs daily as needed for pain pravastatin 10 mg tablet 10 mg PO DAILY Qty: 90 3RF Magnesium 50 mg PO BEDTIME omeprazole magnesium [Prilosec OTC] 20 mg tablet,delayed release (DR/EC) 20 mg PO DAILY liothyronine 5 mcg tablet 2.5 mcg PO BID Qty: 90 1RF levothyroxine 88 mcg tablet 88 mcg PO DAILY Qty: 90 0RF multivitamin Capsule 1 cap PO DAILY Referrals: [facility] [Provider Group] Briseida Lozada MD [Primary Care Provider, Family Practice] Kevin Jordan MD [Physician, Orthopedic Surgery] Stand Alone Forms: Patient Portal/API
--- NOTE | 2025-03-29 14:39 | DI.RAD.S_ITS ---
PROCEDURE: XR TIBIA FIBULA LT 2V INDICATIONS: severe pain fall TECHNIQUE: 2 views of the tibia and fibula were acquired. COMPARISON: None. FINDINGS: Bones: Nondisplaced proximal fibular fracture Soft tissues: No suspicious soft tissue calcifications or masses. IMPRESSION: Nondisplaced proximal fibular fracture. Foreign body Approved by: Kevin Roberts M.D. on 03/29/2025 at 14:35
--- NOTE | 2025-03-29 14:39 | DI.RAD.S_ITS ---
PROCEDURE: XR KNEE LT 3V INDICATIONS: pain fall TECHNIQUE: 3 views of the knee were acquired. COMPARISON: None. FINDINGS: Bones: Nondisplaced proximal fibular fracture. No foreign body. Soft tissues: No joint effusion. No suspicious soft tissue calcifications. IMPRESSION: Nondisplaced proximal fibular fracture Approved by: Kevin Roberts M.D. on 03/29/2025 at 14:31
== END 2025-03-29 17:59 | disposition home or self-care (01) ==
PROVIDERS: Emergency Provider Emergency Medicine; PCP Family Medicine
DX: S82.402A Unspecified fracture of shaft of left fibula, initial encounter for closed fracture (principal); S93.402A Sprain of unspecified ligament of left ankle, initial encounter; W18.30XA Fall on same level, unspecified, initial encounter
CPT/HCPCS: 73562; 73590; 73610; 73630; 99283; 99284

== ENCOUNTER → 2025-06-03 06:58 | Outpatient (CLI) | payer MEDICARE, SELFPAY ==
[2025-06-03 08:38] LABS: Cholesterol 209 mg/dL (140-199); Glucose 103 mg/dL (70-99); HDL Cholesterol 63 mg/dL (40-60); Triglycerides 120 mg/dL (35-150)
[2025-06-03 09:05] LABS: Thyroid Stimulating Hormone 10.4 uIU/mL (0.47-4.68)
== END ==
PROVIDERS: PCP Family Medicine; Referring Provider Family Medicine; Visit Provider Family Medicine
DX: Z13.1 Encounter for screening for diabetes mellitus (principal); Z13.220 Encounter for screening for lipoid disorders; E03.8 Other specified hypothyroidism; E06.3 Autoimmune thyroiditis
CPT/HCPCS: 36415; 80061; 82947; 84443